=== PATIENT | male | born 1950 | race Caucasian/White ===

== ENCOUNTER 2018-05-28 08:48 | Inpatient (IN) | payer MEDICARE, OTHER ==
[~2018-05-28] VITALS: Ht 165.1 cm; Wt 66.9 kg
[2018-05-28] MEDS ORDERED: SOD CHLORIDE 0.9% 1,000 ML IV STA (09:13)
[2018-05-28] MEDS ORDERED: morphine 4 MG/ML VIAL IV STA (09:13)
[2018-05-28] MEDS ORDERED: ONDANSETRON 4 MG INJ IV STA ×2 (09:13→12:14)
[2018-05-28] MEDS ORDERED: IOHEXOL 300MG/ML 150 ML BTL ONE (10:16)
[2018-05-28] MEDS ORDERED: SOD CHLORIDE 0.9% 100 ML ONE (10:16)
[2018-05-28] MEDS ORDERED: HYDROmorphONE 1 MG/ML SYG IV STA (12:14)
[2018-05-28] MEDS ORDERED: TAMS0.4C2 PO (12:42)
--- NOTE | 2018-05-28 13:27 | ERD ---
ER Documentation Chief Complaint Chief Complaint ABD PAIN WITH NAUSEA X 1 MONTH HPI This is a 67-year-old male with a known history of metastatic prostate cancer receiving treatment by his vocal artist oncologist named Dr. Huerta at [facility]. The patient indicates his last dose of chemotherapy was 2 months prior to arrival. He was diagnosed with cancer 2 years ago. The patient indicates for the past 48 hours he has been experiencing left lower quadrant abdominal pain. He also indicates for the past several weeks he has been having loose watery stools. Indicates that he is having watery stools roughly every 30 minutes. He has not recently been on any antibiotics. He said no fevers or shaking or chills. He denies any shortness of breath at rest or exertion. He has not taken any analgesic medication. He feels nauseous but has not experience any emesis. He states the pain in the left lower quadrant is a dull achy sensation. There is no alleviating or exacerbating factors. The pain is persistent. ROS All systems reviewed and are negative except as per history of present illness. Medications Home Meds Reported Medications Tamsulosin Hcl* (Tamsulosin Hcl*) 0.4 Mg Cap.er.24h, 0.4 MG PO HS, CAP 05/28/18 Allergies Allergies: Coded Allergies: tetracycline (Unverified Allergy, Unknown, 05/28/18) PMhx/Soc Medical and Surgical Hx: pt denies Medical Hx, pt denies Surgical Hx Hx Miscellaneous Medical Probl: Yes (prostate cancer) Hx Alcohol Use: No Hx Substance Use: No Hx Tobacco Use: No Smoking Status: Never smoker Physical Exam Vitals Vital Signs Date Temp Pulse Resp B/P (MAP) Pulse Ox O2 O2 Flow FiO2 Time Delivery Rate 05/28/18 88 20 122/76 95 Room Air 12:54 (91) 05/28/18 99.1 90 18 109/64 96 08:51 (79) Physical Exam Constitutional:Well-developed. Well-nourished. HEENT:Normocephalic. Atraumatic.Pupils were equal round reactive to light. Dry mucous membranes.No tonsillar exudates. Neck: No nuchal rigidity. No lymphadenopathy. No posterior cervical spine tenderness or step-offs. Respiratory: Not using accessory muscles of respiration.Lungs were clear to auscultation bilaterally. No rhonchi. No rales. No wheezing. Cardiovascular: Regular rate regular rhythm.No murmurs. No rubs were appreciated.S1, S2 normal. Distal pulses are palpable 2+ bilaterally. GI: Abdomen was soft. Mild tenderness in left lower quadrant. Non Distended. No pulsatile abdominal masses or bruits. No rebound. No guarding. Bowel sounds were present and normal. Muscle skeletal: Full range of motion of both the upper and lower extremities bilaterally.Normal muscle tone.No assymetrical calf tenderness or swelling. Skin: No petechia, no purpura. No lesions on the palms or the soles of the feet. No maculopapular rash. NEURO: Patient was alert, awake, orientated x3.No facial droop. Gait observed and normal with no ataxia.Speech had regular rate and rhythm. No focal neurological deficits. Result Diagram: 05/28/1891205/28/1813 Results 24 hrs Laboratory Tests Test 05/28/18 09:13 05/28/18 09:15 05/28/18 09:35 White Blood Count 9.9 10^3/ul Red Blood Count 3.98 10^6/ul Hemoglobin 11.8 g/dl Hematocrit 35.5 % Mean Corpuscular Volume 89.2 fl Mean Corpuscular Hemoglobin 29.6 pg Mean Corpuscular 33.2 g/dl Hemoglobin Concent Red Cell Distribution Width 13.1 % Platelet Count 356 10^3/UL Mean Platelet Volume 8.7 fl Immature Granulocytes % 0.400 % Neutrophils % 80.8 % Lymphocytes % 8.7 % Monocytes % 8.2 % Eosinophils % 1.5 % Basophils % 0.4 % Nucleated Red Blood Cells % 0.0 /100WBC Immature Granulocytes # 0.040 10^3/ul Neutrophils # 8.0 10^3/ul Lymphocytes # 0.9 10^3/ul Monocytes # 0.8 10^3/ul Eosinophils # 0.2 10^3/ul Basophils # 0.0 10^3/ul Nucleated Red Blood Cells # 0.0 10^3/ul Sodium Level 135 mmol/L Potassium Level 3.5 mmol/L Chloride Level 97 mmol/L Carbon Dioxide Level 27 mmol/L Anion Gap 11 Blood Urea Nitrogen 9 mg/dl Creatinine 0.80 mg/dl Est Glomerular Filtrat > 60 mL/min Rate mL/min Glucose Level 125 mg/dl Calcium Level 9.8 mg/dl Total Bilirubin 0.3 mg/dl Direct Bilirubin 0.00 mg/dl Indirect Bilirubin 0.3 mg/dl Aspartate Amino 51 IU/L Transf (AST/SGOT) Alanine 18 IU/L Aminotransferase (ALT/SGPT) Alkaline Phosphatase 144 IU/L Troponin I < 0.012 ng/ml Total Protein 7.4 g/dl Albumin 4.1 g/dl Globulin 3.30 g/dl Albumin/Globulin Ratio 1.24 Amylase Level 67 U/L Lipase 91 U/L Prostate Specific Antigen Pending Prothrombin Time 14.2 Sec Prothrombin Time Ratio 1.1 INR International 1.09 Normalized Ratio Activated Partial Thromboplast 39.4 Sec Time Urine Color STRAW Urine Clarity CLEAR Urine pH 6.0 Urine Specific [place] 1.005 Urine Ketones NEGATIVE mg/dL Urine Nitrite NEGATIVE mg/dL Urine Bilirubin NEGATIVE mg/dL Urine Urobilinogen NEGATIVE mg/dL Urine Leukocyte Esterase NEGATIVE Jamie/ul Urine Microscopic RBC 4 /HPF Urine Microscopic WBC 0 /HPF Urine Hemoglobin 2+ mg/dL Urine Glucose NEGATIVE mg/dL Urine Total Protein NEGATIVE mg/dl Current Medications Medications Dose Sig/Anne Start Time Status Last (Trade) Ordered Route PRN Stop Time Admin Dose Reason Admin Sodium 1,000 ml @ Q1H STAT 05/28/18 DC 05/28/18 Chloride 1,000 mls/hr IV 09:13 09:27 05/28/18 10:12 Morphine 4 mg ONCE STAT 05/28/18 DC 05/28/18 Sulfate IV 09:13 09:27 (morphine) 05/28/18 09:16 Ondansetron 4 mg ONCE STAT 05/28/18 DC 05/28/18 HCl (Zofran IV 09:13 09:27 Inj) 05/28/18 09:16 Iohexol 150 ml STK-MED 05/28/18 DC (Omnipaque ONCE .ROUTE 10:16 300mg/ ml) 05/28/18 10:17 Sodium 100 ml @ ud STK-MED 05/28/18 DC Chloride ONCE .ROUTE 10:16 05/28/18 10:17 1 mg ONCE STAT 05/28/18 DC 05/28/18 Hydromorphone IV 12:14 12:25 HCl 05/28/18 12:15 (Dilaudid) Ondansetron 4 mg ONCE STAT 05/28/18 DC 3/10/19 HCl (Zofran IV 12:14 12:24 Inj) 05/28/18 12:15 Procedures/MDM This patient presented to the emergency department with abdominal pain and was seen and evaluated by myself. My differential diagnosis included but was not limited to abdominal aortic aneurysm, appendicitis, pancreatitis, perforated peptic ulcer, perforated viscus, Boerhaaves syndrome or visceral pain such as diverticulitis, DKA, esophagitis, hepatitis or bowel obstruction. The patient was placed on a environmental monitoring technician, continuous pulse oximetry, and IV access was established by nursing staff. The patient was given intravenous morphine and Zofran but this did not improve his pain. Therefore he was given a further dose of Dilaudid. I obtained a CT scan of the abdomen due to the severity of his pain and his past medical history. This was reviewed by the radiologist and indicated the follo win. Extensive lymphadenopathy is identified, compatible with neoplasm, possibly metastatic disease or lymphoma. Dominant left pelvic sidewall lymph node demonstrates areas of hypoenhancement and adjacent inflammation/edema, possibly indicating necrosis. 2. Extensive sclerotic osseous metastases. 3. Mildly enlarged prostate, possibly indicating underlying primary prostate malignancy. 4. Left ureteral stent is in place. There is moderate left hydroureteronephrosis. 5. Urinary bladder is moderately distended, concerning for urinary retention / bladder outflow obstruction. The patient was able to urinate without any difficulty. Patient also been experiencing diarrhea but had no risk factors for Clostridium difficile. The patient had no severe electrolyte abnormalities. A C. difficile culture will be obtained. My clinical suspicion was low for necrosis of the bowel as the patient had very mild pain. There is no leukocytosis. However I did feel the patient required admission for serial repeat abdominal examinations. There is no peritoneal signs during my physical exam. Observation Note: Time: 4 hours Family Hx: No Hypertension Evaluation: Multiple exams showed minimal improvement of his symptoms and therefore I did feel the patient required admission as stated above for serial abdominal examinations. Again the patient had no peritoneal signs. The patient will be admitted to the hospitalist. I did feel the patient was stable to go to the medical surgical floor Departure Diagnosis: Primary Impression: Prostate cancer metastatic to multiple sites Additional Impression: Diarrhea Diarrhea type: unspecified type Qualified Codes: R19.7 - Diarrhea, unspecified Condition: Serious BERT SIERRA MD May 28, 2018 13:27
[2018-05-28] MEDS: SOD CHLORIDE 0.9% 1,000 ML IV SCH (14:50)
[2018-05-28] MEDS ORDERED: NACL 0.9% 3 ML SYG IV SCH (15:00)
[2018-05-28] MEDS ORDERED: IBUPROFEN 600 MG TAB PO PRN (15:00)
--- NOTE | 2018-05-28 15:20 | HP ---
Date/Time of Note Date/Time of Note DATE: 05/28/18 TIME: 14:55 Assessment/Plan VTE Prophylaxis Pharmacological prophylaxis: NA/contraindicated Pharm contraindication: low risk/ambulating Lines/Catheters IV Catheter Type (from Nrsg): Saline Lock Assessment/Plan Assessment/Plan 67 yo man with metastatic prostate cancer presents with cancer-related pain #Diarrhea - 3 days very frequent diarrhea - Moderate risk of C diff in this cancer patient on chemotherapy, even though normal WBCs - Will check C diff. #Cancer-related pain - Patient has not been taking home analgesics. - Has bone mets causing pain with ambulation. These respond well to NSAIDs, will start ibuprofen prn - Also continue Bryan - For burning epigastric pain, will increase to PPI BID - May benefit from appetite stimulant like Marinol. However patient currently appears well nourished, will defer this decision to his oncologist. - PT eval #Lymphadenopathy - CT shows abdominal and pelvic lymphadenopathy with necrosis, likely contributing to pain. - Pain control as above. - Oncology outpatient followup. Dispo: If C diff negative, likely discharge. Result Diagram: 05/28/1891205/28/18912 HPI/ROS Admit Date/Time Admit Date/Time May 28, 2018 Hx of Present Illness Mr. Hawkins is a pleasant 67 yo man with metastatic prostate cancer who presents with abdominal pain. He follows Dr. Deanna Casillas at [facility] for oncology. Finished chemotherapy 2 months ago. He reports that since then, he has lost his sense of taste and has very poor appetite. Also reports chronic diarrhea and diffuse bone pain. The last 3-4 days he has been bedridden more than 50% of the day due to bone pain. He reports normally can do all ADLs. He also reports diffuse burning abdominal pain, "like my stomach is hungry but I feel nauseated". Also, reports three days of diarrhea more frequent than usual every 30 minutes. He has not vomited. He has been prescribed norco but he rarely takes it, reports it doesn't improve abdominal discomfort. Takes omeprazole daily. Discussed goals of care and code status. He is amenable to changing code status in the future but currently wants to remain full code. Understands the chronic progressive nature of his disease. In the ED he was afebrile, pulse 90, BP 109/64, sat 96% RA. Labs unremarkable. UA negative, lipase 91. CT demonstrates diffuse lymphadenopathy with a large L pelvic sidewall lymph node which appears necrotic. ROS Denies fever, chills, headache, vision changes, dysphagia, sore throat, dyspnea, cough, chest pain/pressure/palpitations, constipation, vomiting, dysuria, hematuria, melena, hematochezia. PMH/Family/Social Past Medical History Prostate cancer metastatic on chemotherapy Medications Current Medications Sodium Chloride 1,000 ml @ 75 mls/hr [id number] IV ; Start 05/28/18 at 14:50; Status UNV IV Flush (NS 3 ml) 3 ml PER PROTOCOL IV ; Start 05/28/18 at 15:00; Status UNV Ondansetron HCl (Zofran Inj) 4 mg Q6H PRN IV NAUSEA/VOMITING; Start 05/28/18 at 15:00; Status UNV Acetaminophen/ Hydrocodone Bitart (Bryan (5/325)) 1 tab Q6H PRN PO .MOD PAIN 4- 6; Start 05/28/18 at 15:00; Status UNV Pantoprazole (Protonix Iv) 40 mg BID IV ; Start 05/28/18 at 21:00; Status UNV Enoxaparin Sodium (Lovenox) 40 mg DAILY SC ; Start 05/29/18 at 09:00; Status UNV Coded Allergies: tetracycline (Unverified Allergy, Unknown, 05/28/18) Past Surgical History Bladder stone removal L ureteral stent placement. Social History Alcohol Use: none Smoking Status: Never smoker Drug Use: none Exam/Review of Systems Vital Signs Vitals Vital Signs Date Temp Pulse Resp B/P (MAP) Pulse Ox O2 O2 Flow FiO2 Time Delivery Rate 05/28/18 89 18 102/62 98 Room Air 14:12 (75) 05/28/18 99.1 08:51 Exam Exam Gen: Well appearing overweight man in no acute distress. Eyes: PERRL, no icterus HEENT: Moist mucous membranes, adentulous; clear oropharynx Neck: No lymphadenopathy, no JVD Card: Regular rate and rhythm, no murmurs Pulm: Clear to auscultation bilaterally Abd: Soft, nontender; mildly distended. Nontympanic, no hepatosplenomegaly. Ext: No cyanosis/clubbing/edema Skin: warm, dry, well perfused. LEORA DOMÍNGUEZ MD May 28, 2018 15:08
[2018-05-28 20:00] VITALS: Ht 165.1 cm; Wt 66.9 kg
[2018-05-28] MEDS: PANTOPRAZOLE 40 MG INJ IV SCH (21:14)
[2018-05-28] MEDS: HYDROCODONE/APAP (5/325) TAB PO PRN (23:02)
[2018-05-29 02:10] VITALS: BP 119/66; PULSE 91; RESP 18
[2018-05-29] MEDS: SOD CHLORIDE 0.9% 1,000 ML IV SCH ×2 (05:10→17:35)
[2018-05-29] MEDS ORDERED: morphine 2 MG INJ IV STA (05:37)
[2018-05-29 07:15] VITALS: BP 119/73; PULSE 107; RESP 16
[2018-05-29] MEDS: PANTOPRAZOLE 40 MG INJ IV SCH ×2 (09:08→21:20)
[2018-05-29] MEDS: HYDROCODONE/APAP (5/325) TAB PO PRN (09:09)
[2018-05-29] MEDS: ENOXAPARIN 40 MG/0.4 ML SYG SC SCH (09:10)
[2018-05-29 14:43] VITALS: BP 124/69; PULSE 102; RESP 16
--- NOTE | 2018-05-29 16:11 | PN ---
Date/Time of Note Date/Time of Note DATE: 05/29/18 TIME: 16:08 Assessment/Plan VTE Prophylaxis Risk score (from Ns)>0 risk: 5 SCD applied (from Ns): No SCD contraindicated: other Pharmacological prophylaxis: LMWH Lines/Catheters [facility] Saline Lock Urinary Cath still in place: No Assessment/Plan Hospital Course S: Patient stool studies collected, results pending. Still having some pain symptoms but overall less diarrhea symptoms. O: VS-see below Physical exam: Gen: Well appearing overweight man in no acute distress. Eyes: PERRL, no icterus HEENT: Moist mucous membranes, adentulous; clear oropharynx Neck: No lymphadenopathy, no JVD Card: Regular rate and rhythm, no murmurs Pulm: Clear to auscultation bilaterally Abd: Soft, nontender; mildly distended. Nontympanic, no hepatosplenomegaly. Ext: No lower extremity edema bilaterally Assessment/Plan: 67 yo man with metastatic prostate cancer presents with cancer- related pain #Diarrhea-none noted since admission, apparently patient was having 3 days of ve ry frequent diarrhea prior to admission- Moderate risk of C diff in this cancer patient on chemotherapy, even though normal WBCs -Continue IV fluids, follow-up results of C diff test, pending #Cancer-related pain- Patient has not been taking home analgesics.- Has bone mets causing pain with ambulation. -We will start patient on MS Contin twice daily, also continue Umpire as needed - For burning epigastric pain, have increased to PPI BID - May benefit from appetite stimulant like Marinol. However patient currently appears well nourished, will defer this decision to his oncologist. -Follow-up recommendations from PT inderjit #Lymphadenopathy- CT shows abdominal and pelvic lymphadenopathy with necrosis, likely contributing to pain. -Continue pain control as above. - Oncology outpatient followup. Dispo: If C diff negative, likely discharge. Result Diagram: 05/29/18 0439 05/29/18 0509 Results 24hrs Laboratory Tests Test 05/29/18 04:35 05/29/18 05:09 White Blood Count 14.0 #H Red Blood Count 4.02 L Hemoglobin 11.9 L Hematocrit 36.6 L Mean Corpuscular Volume 91.0 Mean Corpuscular Hemoglobin 29.6 Mean Corpuscular Hemoglobin Concent 32.5 Red Cell Distribution Width 13.5 Platelet Count 371 Mean Platelet Volume 9.4 Immature Granulocytes % 0.600 H Neutrophils % 80.6 H Lymphocytes % 8.2 L Monocytes % 10.1 Eosinophils % 0.1 Basophils % 0.4 Nucleated Red Blood Cells % 0.0 Immature Granulocytes # 0.080 H Neutrophils # 11.3 H Lymphocytes # 1.2 Monocytes # 1.4 H Eosinophils # 0.0 Basophils # 0.1 Nucleated Red Blood Cells # 0.0 Hemoglobin A1c 5.4 Sodium Level 139 Potassium Level 4.0 Chloride Level 100 Carbon Dioxide Level 24 Anion Gap 15 H Blood Urea Nitrogen 9 Creatinine 0.91 Est Glomerular Filtrat Rate mL/min > 60 Glucose Level 118 Calcium Level 9.6 Phosphorus Level 3.6 Magnesium Level 1.9 Total Bilirubin 0.6 Direct Bilirubin 0.00 Indirect Bilirubin 0.6 Aspartate Amino Transf (AST/SGOT) 53 H Alanine Aminotransferase (ALT/SGPT) 10 L Alkaline Phosphatase 122 H Total Protein 7.1 Albumin 4.0 Globulin 3.10 Albumin/Globulin Ratio 1.29 Triglycerides Level 62 Cholesterol Level 182 LDL Cholesterol, Calculated 133 HDL Cholesterol 37 Cholesterol/HDL Ratio 4.9 Thyroid Stimulating Hormone (TSH) 1.470 Exam/Review of Systems Exam Vitals Vital Signs Date Temp Pulse Resp B/P (MAP) Pulse Ox O2 O2 Flow FiO2 Time Delivery Rate 05/29/18 98.4 102 16 124/69 92 Room Air 14:43 (87) Intake and Output 05/28/18 05/28/18 05/29/18 1515:00 23:00 07:00 IntakeIntake Total 1575 ml BalanceBalance 1575 ml Results Results 24hrs Laboratory Tests Test 05/29/18 04:35 05/29/18 05:09 White Blood Count 14.0 #H Red Blood Count 4.02 L Hemoglobin 11.9 L Hematocrit 36.6 L Mean Corpuscular Volume 91.0 Mean Corpuscular Hemoglobin 29.6 Mean Corpuscular Hemoglobin Concent 32.5 Red Cell Distribution Width 13.5 Platelet Count 371 Mean Platelet Volume 9.4 Immature Granulocytes % 0.600 H Neutrophils % 80.6 H Lymphocytes % 8.2 L Monocytes % 10.1 Eosinophils % 0.1 Basophils % 0.4 Nucleated Red Blood Cells % 0.0 Immature Granulocytes # 0.080 H Neutrophils # 11.3 H Lymphocytes # 1.2 Monocytes # 1.4 H Eosinophils # 0.0 Basophils # 0.1 Nucleated Red Blood Cells # 0.0 Hemoglobin A1c 5.4 Sodium Level 139 Potassium Level 4.0 Chloride Level 100 Carbon Dioxide Level 24 Anion Gap 15 H Blood Urea Nitrogen 9 Creatinine 0.91 Est Glomerular Filtrat Rate mL/min > 60 Glucose Level 118 Calcium Level 9.6 Phosphorus Level 3.6 Magnesium Level 1.9 Total Bilirubin 0.6 Direct Bilirubin 0.00 Indirect Bilirubin 0.6 Aspartate Amino Transf (AST/SGOT) 53 H Alanine Aminotransferase (ALT/SGPT) 10 L Alkaline Phosphatase 122 H Total Protein 7.1 Albumin 4.0 Globulin 3.10 Albumin/Globulin Ratio 1.29 Triglycerides Level 62 Cholesterol Level 182 LDL Cholesterol, Calculated 133 HDL Cholesterol 37 Cholesterol/HDL Ratio 4.9 Thyroid Stimulating Hormone (TSH) 1.470 Medications Medication Current Medications Sodium Chloride 1,000 ml @ 75 mls/hr [id number] IV Last administered on 05/29/18 05:10; Admin Dose 75 MLS/HR; Start 05/28/18 at 14:50 IV Flush (NS 3 ml) 3 ml PER PROTOCOL IV ; Start 05/28/18 at 15:00 Ondansetron HCl (Zofran Inj) 4 mg Q6H PRN IV NAUSEA/VOMITING; Start 05/28/18 at 15:00 Acetaminophen/ Hydrocodone Bitart (Umpire (5/325)) 1 tab Q6H PRN PO .MOD PAIN 4- 6 Last administered on 05/29/18 09:09; Admin Dose 1 TAB; Start 05/28/18 at 15:00 Pantoprazole (Protonix Iv) 40 mg BID IV Last administered on 05/29/18at 09:08; Admin Dose 40 MG; Start 05/28/18 at 21:00 Enoxaparin Sodium (Lovenox) 40 mg DAILY SC Last administered on 05/29/18 09:10; Admin Dose 40 MG; Start 05/29/18 at 09:00 Ibuprofen (Motrin) 600 mg Q6H PRN PO bone pain; Start 05/28/18 at 15:00 CITLALY CALERO May 29, 2018 16:11
[2018-05-29] MEDS: morphine (ER) 15 MG TAB PO SCH (16:41)
[2018-05-29] MEDS: ONDANSETRON 4 MG INJ IV PRN (17:35)
[2018-05-29 20:32] VITALS: BP 111/69; PULSE 105; RESP 16
[2018-05-30] MEDS: morphine (ER) 15 MG TAB PO SCH ×2 (01:11→09:05)
[2018-05-30 02:08] VITALS: BP 106/67; PULSE 100; RESP 16
[2018-05-30] MEDS: SOD CHLORIDE 0.9% 1,000 ML IV SCH ×2 (05:45→19:41)
[2018-05-30 08:18] VITALS: BP 93/49; PULSE 101; RESP 18
[2018-05-30] MEDS: PANTOPRAZOLE 40 MG INJ IV SCH ×2 (09:04→20:56)
[2018-05-30] MEDS: ENOXAPARIN 40 MG/0.4 ML SYG SC SCH (09:06)
[2018-05-30] MEDS: HYDROCODONE/APAP (5/325) TAB PO PRN (10:16)
[2018-05-30] MEDS: ONDANSETRON 4 MG INJ IV PRN (13:24)
[2018-05-30 14:30] VITALS: BP 99/59; PULSE 91; RESP 20
--- NOTE | 2018-05-30 14:52 | PN ---
Date/Time of Note Date/Time of Note DATE: 05/30/18 TIME: 14:49 Assessment/Plan VTE Prophylaxis Risk score (from Nsg)>0 risk: 3 SCD applied (from Nsg): No SCD contraindicated: other Pharmacological prophylaxis: LMWH Lines/Catheters IV Catheter Type (from Nrsg): Saline Lock Urinary Cath still in place: No Assessment/Plan Hospital Course S: Patient not having any more diarrhea, pain symptoms slightly improved but still overall present since yesterday despite being started on low-dose MS Contin. O: VS-see below Physical exam: Gen: Well appearing overweight man in no acute distress. Eyes: PERRL, no icterus HEENT: Moist mucous membranes, adentulous; clear oropharynx Neck: No lymphadenopathy, no JVD Card: Regular rate and rhythm, no murmurs Pulm: Clear to auscultation bilaterally Abd: Soft, nontender; mildly distended. Nontympanic, no hepatosplenomegaly. Ext: No lower extremity edema bilaterally Assessment/Plan: 67 yo man with metastatic prostate cancer presents with cancer- related pain #Diarrhea-none noted since admission, apparently patient was having 3 days of very frequent diarrhea prior to admission- Moderate risk of C diff in this cancer patient on chemotherapy, even though normal WBCs -Since stools are more formed, C. difficile test has been counseled, continue to monitor for now #Cancer-related pain-history of prostate cancer metastasis. CT abdomen pelvis results noted per; patient has not been taking home analgesics.- Has bone mets causing pain with ambulation. -We will increase to 30 mg MS Contin twice daily, also continue [place] as needed -We will add baclofen 3 times daily as well - For burning epigastric pain, continue PPI BID - May benefit from appetite stimulant like Marinol. However patient currently appears well nourished, will defer this decision to his oncologist. -Follow-up recommendations from PT inderjit -Patient has been treated at [facility] under the care of Dr. Suma Renteria hematology oncology fellow for the last 2 years. Stopped chemotherapy 2 months ago at their instructions. Will attempt to try and reach out to this doctor and attempt for a transfer there since the patient is well- known at their facility for continuity of care #Lymphadenopathy- CT shows abdominal and pelvic lymphadenopathy with necrosis, likely contributing to pain. -Continue pain control as above. - Oncology outpatient followup if cannot be transferred. Dispo: If C diff negative, likely discharge. Result Diagram: 05/29/18 0435 05/29/18 0500 Exam/Review of Systems Exam Vitals Vital Signs Date Temp Pulse Resp B/P (MAP) Pulse Ox O2 O2 Flow FiO2 Time Delivery Rate 05/30/18 100.6 101 18 93/49 (64) 92 Room Air 08:18 Intake and Output 05/29/18 05/29/18 05/30/18 1515:00 23:00 07:00 IntakeIntake Total 1215 ml 910 ml OutputOutput Total 200 ml BalanceBalance 1215 ml 710 ml Medications Medication Current Medications Sodium Chloride 1,000 ml @ 75 mls/hr [id number] IV Last administered on 05/30/18at 05:45; Admin Dose 75 MLS/HR; Start 05/28/18 at 14:50 IV Flush (NS 3 ml) 3 ml PER PROTOCOL IV ; Start 05/28/18 at 15:00 Ondansetron HCl (Zofran Inj) 4 mg Q6H PRN IV NAUSEA/VOMITING Last administered on 05/30/18at 13:24; Admin Dose 4 MG; Start 05/28/18 at 15:00 Acetaminophen/ Hydrocodone Bitart ([place] (5/325)) 1 tab Q6H PRN PO .MOD PAIN 4- 6 Last administered on 05/30/18at 10:16; Admin Dose 1 TAB; Start 05/28/18 at 15:00 Pantoprazole (Protonix Iv) 40 mg BID IV Last administered on 05/30/18at 09:04; Admin Dose 40 MG; Start 05/28/18 at 21:00 Enoxaparin Sodium (Lovenox) 40 mg DAILY SC Last administered on 05/30/18at 09:0 6; Admin Dose 40 MG; Start 05/29/18 at 09:00 Ibuprofen (Motrin) 600 mg Q6H PRN PO bone pain; Start 05/28/18 at 15:00 Morphine Sulfate (Ms Contin (Er)) 30 mg BID PO ; Start 05/30/18 at 21:00 Morphine Sulfate (Ms Contin (Er)) 15 mg ONCE ONCE PO ; Start 05/30/18 at 15:00; Stop 05/30/18 at 15:01 Baclofen (Lioresal) 10 mg TID PO ; Start 05/30/18 at 15:00 CITLALY CALERO May 30, 2018 14:52
[2018-05-30] MEDS ORDERED: morphine (ER) 15 MG TAB PO ONE (15:00)
[2018-05-30] MEDS: BACLOFEN 10 MG TAB PO SCH ×2 (15:53→20:57)
[2018-05-30 20:00] VITALS: BP 111/69; PULSE 104; RESP 19
[2018-05-30] MEDS: morphine (ER) 30 MG TAB PO SCH (20:57)
[2018-05-31 02:00] VITALS: BP 117/55; PULSE 69; RESP 18
[2018-05-31 08:00] VITALS: BP 105/67; PULSE 100; RESP 18
[2018-05-31] MEDS: morphine (ER) 30 MG TAB PO SCH ×3 (08:25→21:04)
[2018-05-31] MEDS: PANTOPRAZOLE 40 MG INJ IV SCH (08:25)
[2018-05-31] MEDS: BACLOFEN 10 MG TAB PO SCH ×3 (08:25→21:04)
[2018-05-31] MEDS: ENOXAPARIN 40 MG/0.4 ML SYG SC SCH (08:26)
[2018-05-31] MEDS: SOD CHLORIDE 0.9% 1,000 ML IV SCH (10:04)
[2018-05-31 14:00] VITALS: BP 118/72; RESP 20
--- NOTE | 2018-05-31 15:20 | PN ---
Date/Time of Note Date/Time of Note DATE: 05/31/18 TIME: 15:15 Assessment/Plan VTE Prophylaxis Risk score (from Nsg)>0 risk: 4 SCD applied (from Nsg): No SCD contraindicated: other Pharmacological prophylaxis: LMWH Lines/Catheters IV Catheter Type (from Nrsg): Saline Lock Urinary Cath still in place: No Assessment/Plan Hospital Course S: Patient still with pain symptoms despite higher dose of MS Contin and adding of muscle relaxant yesterday. Case management still waiting on potential transfer to [facility]. O: VS-see below Physical exam: Gen: Well appearing overweight man in no acute distress. Eyes: PERRL, no icterus HEENT: Moist mucous membranes, adentulous; clear oropharynx Neck: No lymphadenopathy, no JVD Card: Regular rate and rhythm, no murmurs Pulm: Clear to auscultation bilaterally Abd: Soft, nontender; mildly distended. Nontympanic, no hepatosplenomegaly. Ext: No lower extremity edema bilaterally Assessment/Plan: 67 yo man with metastatic prostate cancer presents with cancer- related pain #Diarrhea-none noted since admission, apparently patient was having 3 days of very frequent diarrhea prior to admission- Moderate risk of C diff in this cancer patient on chemotherapy, even though normal WBCs -Since stools are more formed, C. difficile test has been counseled, continue to monitor for now #Cancer-related pain-history of prostate cancer metastasis. CT abdomen pelvis results noted including findings of extensive osseous metastasis; per patient, he was treated over the last 2 years up until 2 months ago at [facility] including chemotherapy treatment at that time: Patient has not been taking home analgesics-hence he has bone mets causing pain with ambulation. -We will add Dilaudid 1 mg IV every 3 hours as needed to the 30 mg MS Contin twice daily, also continue Nunez as needed -Continue baclofen 3 times daily as well - For burning epigastric pain, continue PPI BID - May benefit from appetite stimulant like Marinol. However patient currently appears well nourished, will defer this decision to his oncologist. -Follow-up recommendations from PT inderjit -Again, previously the patient had been treated at [facility] under the care of Dr. Suma Renteria hematology oncology fellow for the last 2 years. Stopped chemotherapy 2 months ago at their instructions. Have attempted to try and reach out to this doctor and attempt for a transfer there since the patient is well-known at their facility for continuity of care-Case management is presently working on this. #Lymphadenopathy- CT shows abdominal and pelvic lymphadenopathy with necrosis, likely contributing to pain. -Continue pain control as above. - Oncology outpatient followup if cannot be transferred. Result Diagram: 05/30/18 1632 05/30/18 1631 Results 24hrs Laboratory Tests Test 05/30/18 16:31 05/30/18 16:32 05/30/18 20:50 Sodium Level 134 L Potassium Level 3.5 Chloride Level 99 Carbon Dioxide Level 24 Anion Gap 11 Blood Urea Nitrogen 8 Creatinine 0.85 Est Glomerular Filtrat Rate mL/min > 60 Glucose Level 114 Calcium Level 9.1 White Blood Count 13.7 H Red Blood Count 3.28 L Hemoglobin 9.6 L Hematocrit 29.6 L Mean Corpuscular Volume 90.2 Mean Corpuscular Hemoglobin 29.3 Mean Corpuscular Hemoglobin Concent 32.4 Red Cell Distribution Width 13.7 Platelet Count 306 Mean Platelet Volume 9.8 Immature Granulocytes % 0.500 H Neutrophils % 82.2 H Lymphocytes % 6.8 L Monocytes % 9.9 Eosinophils % 0.2 Basophils % 0.4 Nucleated Red Blood Cells % 0.0 Immature Granulocytes # 0.070 H Neutrophils # 11.3 H Lymphocytes # 0.9 Monocytes # 1.4 H Eosinophils # 0.0 Basophils # 0.1 Nucleated Red Blood Cells # 0.0 Urine Color YELLOW Urine Clarity CLEAR Urine pH 5.0 Urine Specific [place] 1.012 Urine Ketones NEGATIVE Urine Nitrite NEGATIVE Urine Bilirubin NEGATIVE Urine Urobilinogen NEGATIVE Urine Leukocyte Esterase NEGATIVE Urine Microscopic RBC 9 H Urine Microscopic WBC 2 Urine Mucus FEW A Urine Hemoglobin 2+ H Urine Glucose NEGATIVE Urine Total Protein 1+ H Exam/Review of Systems Exam Vitals Vital Signs Date Temp Pulse Resp B/P (MAP) Pulse Ox O2 O2 Flow FiO2 Time Delivery Rate 05/31/18 98.8 20 118/72 96 14:00 (87) 05/31/18 100 08:00 05/30/18 Room Air 14:30 Intake and Output 05/30/18 05/30/18 05/31/18 1515:00 23:00 07:00 IntakeIntake Total 780 ml 1000 ml 750 ml OutputOutput Total 300 ml 250 ml 400 ml BalanceBalance 480 ml 750 ml 350 ml Results Results 24hrs Laboratory Tests Test 05/30/18 16:31 05/30/18 16:32 05/30/18 20:50 Sodium Level 134 L Potassium Level 3.5 Chloride Level 99 Carbon Dioxide Level 24 Anion Gap 11 Blood Urea Nitrogen 8 Creatinine 0.85 Est Glomerular Filtrat Rate mL/min > 60 Glucose Level 114 Calcium Level 9.1 White Blood Count 13.7 H Red Blood Count 3.28 L Hemoglobin 9.6 L Hematocrit 29.6 L Mean Corpuscular Volume 90.2 Mean Corpuscular Hemoglobin 29.3 Mean Corpuscular Hemoglobin Concent 32.4 Red Cell Distribution Width 13.7 Platelet Count 306 Mean Platelet Volume 9.8 Immature Granulocytes % 0.500 H Neutrophils % 82.2 H Lymphocytes % 6.8 L Monocytes % 9.9 Eosinophils % 0.2 Basophils % 0.4 Nucleated Red Blood Cells % 0.0 Immature Granulocytes # 0.070 H Neutrophils # 11.3 H Lymphocytes # 0.9 Monocytes # 1.4 H Eosinophils # 0.0 Basophils # 0.1 Nucleated Red Blood Cells # 0.0 Urine Color YELLOW Urine Clarity CLEAR Urine pH 5.0 Urine Specific [place] 1.012 Urine Ketones NEGATIVE Urine Nitrite NEGATIVE Urine Bilirubin NEGATIVE Urine Urobilinogen NEGATIVE Urine Leukocyte Esterase NEGATIVE Urine Microscopic RBC 9 H Urine Microscopic WBC 2 Urine Mucus FEW A Urine Hemoglobin 2+ H Urine Glucose NEGATIVE Urine Total Protein 1+ H Medications Medication Current Medications Sodium Chloride 1,000 ml @ 75 mls/hr [id number] IV Last administered on 05/31/18at 10:04; Admin Dose 75 MLS/HR; Start 05/28/18 at 14:50 IV Flush (NS 3 ml) 3 ml PER PROTOCOL IV ; Start 05/28/18 at 15:00 Ondansetron HCl (Zofran Inj) 4 mg Q6H PRN IV NAUSEA/VOMITING Last administered on 05/30/18at 13:24; Admin Dose 4 MG; Start 05/28/18 at 15:00 Acetaminophen/ Hydrocodone Bitart ([place] (5/325)) 1 tab Q6H PRN PO .MOD PAIN 4- 6 Last administered on 05/30/18at 10:16; Admin Dose 1 TAB; Start 05/28/18 at 15:00 Enoxaparin Sodium (Lovenox) 40 mg DAILY SC Last administered on 05/31/18at 08:26; Admin Dose 40 MG; Start 05/29/18 at 09:00 Ibuprofen (Motrin) 600 mg Q6H PRN PO bone pain; Start 05/28/18 at 15:00 Morphine Sulfate (Ms Contin (Er)) 30 mg BID PO Last administered on 05/31/18at 08:25; Admin Dose 30 MG; Start 05/30/18 at 21:00 Baclofen (Lioresal) 10 mg TID PO Last administered on 05/31/18at 12:14; Admin Dose 10 MG; Start 05/30/18 at 15:00 Hydromorphone HCl (Dilaudid) 1 mg Q3H PRN IV SEVERE PAIN LEVEL 7-10; Start 05/31/18 at 15:30; Status UNV Pantoprazole (Protonix Tab) 40 mg BID@06,18 PO ; Start 05/31/18 at 18:00 CITLALY CALERO 13, 2019 15:20
[2018-05-31] MEDS ORDERED: HYDROmorphONE 1 MG/ML SYG IV PRN (15:30)
[2018-05-31] MEDS: PANTOPRAZOLE (EC) 40 MG TAB PO SCH (18:54)
[2018-05-31 20:00] VITALS: BP 115/68; PULSE 98; RESP 19
[2018-06-01 02:07] VITALS: BP 109/74; PULSE 88; RESP 18
[2018-06-01] MEDS: SOD CHLORIDE 0.9% 1,000 ML IV SCH ×3 (04:03→20:58)
[2018-06-01] MEDS: PANTOPRAZOLE (EC) 40 MG TAB PO SCH ×2 (05:59→17:01)
[2018-06-01 08:26] VITALS: BP 110/69; PULSE 89; RESP 17
[2018-06-01] MEDS ORDERED: HYDROmorphONE 2 MG TAB PO PRN (09:00)
[2018-06-01] MEDS ORDERED: METHYLNALTREXONE 12 MG/0.6 ML VIAL SC SCH (09:00)
[2018-06-01] MEDS: ENOXAPARIN 40 MG/0.4 ML SYG SC SCH (09:01)
--- NOTE | 2018-06-01 09:05 | CONS ---
Assessment/Plan Assessment/Plan Assessment/Plan (Daily) Metastatic prostate cancer Metastases to bones widespread osseous metastasis Chest x-ray shows evidence of nodular lesions in his lungs Sense of lymphadenopathy in the pelvic region Pain out of control Recent history of chemotherapy 2 months prior to this admission Recent history of diarrhea now resolved Just current dose of morphine not controlling his pain per patient will start him off and methadone 2 mg every 4 hours scheduled as it is the best pain medication for bony metastasis. Additionally will add on p.o. Dilaudid Relistor to her regimen to try and decrease the constipating effect of opioid pulses with steroids, short trial of Toradol 15 mg every 6 hours scheduled MR study of his lumbar sacral spine rule out metastases his lumbosacral spine indicating possible cessation with left lower extremity and left hip pain. I agree that if possible patient should be transferred to his primary care docs at [facility]. Consultation Date/Type/Reason Admit Date/Time May 28, 2018 Date/Time of Note DATE: 06/01/18 TIME: 08:59 Hx of Present Illness This is a very pleasant 67-year-old gentleman who has a history of metastatic prostate cancer last chemotherapy was done 2 months prior to his presentation since that time patient states he has had increasing discomfort, pain in his shoulder and left hip patient states no pain medications at home other than Tylenol. He also developed diarrhea beginning approximately 3 days prior to his presentation which has subsequently discontinued. There is no obvious history of major weight loss patient denies nausea vomiting chest pain shortness of breath cough frequency or burning when he urinates states he has not lost sensation or motor function in bilateral lower extremity since the pain began.. Denies pruritus mental cloudiness sweating fatigue or drowsiness is his pain as 7/10. Very with minimal movement. There is no history of oversedation negative mood changes he does not appear to be intoxicated or unkempt is not negotiating for increasing doses of pain control medications are decreasing intervals he states current medications including MS Contin and core not alleviating his pain but he makes very clear at rest he is comfortable with minimal movement his pain accelerates. I do not get the impression he is using his pain control medication response to situational stressors there is no history of alcohol illicit drugs hoarding or arrest by police is not a victim of abuse. Subjective hx not possible: other (In pain with minimal movement) Eyes: No no complaints, No pain, No discharge, No redness, No visual change, No other ENT: No no complaints, No bleeding, No pain, No congestion, No discharge, No dysphagia, No sore throat, No other Respiratory: No no complaints, No pain, No cough, No pleuritic pain, No shortness of breath, No sputum, No wheezing, No other Cardiovascular: No no complaints, No chest pain, No edema, No lightheadedness, No orthopenea, No palpitations, No paroxysmal nocturnal dyspnea, No other Gastrointestinal: No no complaints, No pain, No blood, No constipation, No decreased appetite, No diarrhea, No flatus, No nausea, No passing stool, No vomiting, No other Genitourinary: No no complaints, No bleeding, No dysuria, No discharge, No flank pain, No hematuria, No other Neurologic: No no complaints, No confusion, No dizziness, No focal-weakness, No headache, No syncope, No seizure, No other Past Medical History Medical History: cancer, other (Otherwise unremarkable) Home Meds Reported Medications Tamsulosin Hcl* (Tamsulosin Hcl*) 0.4 Mg Cap.er.24h, 0.4 MG PO HS, CAP 05/28/18 Medications Current Medications Sodium Chloride 1,000 ml @ 75 mls/hr [id number] IV Last administered on 06/01/18at 04:03; Admin Dose 75 MLS/HR; Start 05/28/18 at 14:50 IV Flush (NS 3 ml) 3 ml PER PROTOCOL IV ; Start 05/28/18 at 15:00 Ondansetron HCl (Zofran Inj) 4 mg Q6H PRN IV NAUSEA/VOMITING Last administered on 05/30/18at 13:24; Admin Dose 4 MG; Start 05/28/18 at 15:00 Acetaminophen/ Hydrocodone Bitart ([place] (5/325)) 1 tab Q6H PRN PO .MOD PAIN 4- 6 Last administered on 05/30/18at 10:16; Admin Dose 1 TAB; Start 05/28/18 at 15:00 Enoxaparin Sodium (Lovenox) 40 mg DAILY SC Last administered on 05/31/18at 08:26; Admin Dose 40 MG; Start 05/29/18 at 09:00 Ibuprofen (Motrin) 600 mg Q6H PRN PO bone pain; Start 05/28/18 at 15:00 Morphine Sulfate (Ms Contin (Er)) 30 mg BID PO Last administered on 05/31/18at 21:04; Admin Dose 30 MG; Start 05/30/18 at 21:00 Baclofen (Lioresal) 10 mg TID PO Last administered on 05/31/18at 21:04; Admin D ose 10 MG; Start 05/30/18 at 15:00 Hydromorphone HCl (Dilaudid) 1 mg Q3H PRN IV SEVERE PAIN LEVEL 7-10 Last administered on 05/31/18at 15:34; Admin Dose 1 MG; Start 05/31/18 at 15:30 Pantoprazole (Protonix Tab) 40 mg BID@06,18 PO Last administered on 06/01/18at 05:59; Admin Dose 40 MG; Start 05/31/18 at 18:00 Allergies: Coded Allergies: tetracycline (Unverified Allergy, Unknown, 05/28/18) Past Surgical History Past Surgical Hx: other (History of left ureteral stent placement x2, 3 of bladder reconstruction) Social History Alcohol Use: none Smoking Status: Never smoker Drug Use: none Exam/Review of Systems Exam Vitals Vital Signs Date Temp Pulse Resp B/P (MAP) Pulse Ox O2 O2 Flow FiO2 Time Delivery Rate 06/01/18 98.8 89 17 110/69 97 08:26 (83) 05/30/18 Room Air 14:30 Intake and Output 05/31/18 05/31/18 06/01/18 1515:00 23:00 07:00 IntakeIntake Total 600 ml 370 ml 1030 ml BalanceBalance 600 ml 370 ml 1030 ml Constitutional: alert, oriented, well developed, distress, frail Psych: anxiety Head: normocephalic, atraumatic; No lacerations, No hematomas, No other Eyes: nl conjunctiva, EOMI, nl lids, nl sclera, PERRL; No icteric, No fundi, disc, No other Neck: supple, non-tender; No jvd, No bruits, No masses, No thyromegaly, No nuchal rigidity, No other Respiratory: clear to auscultation, normal air movement Cardiovascular: No regular rate and rhythm, No nl pulses, No bruits, No diastolic murmur, No edema, No gallop, No irregular rhythm, No jugular venous distention (JVD), No murmurs/extra sounds, No rub, No systolic murmur, No S3, No S4, No other Gastrointestinal: No soft, No nl liver, spleen, No non-tender, No ascites, No bowel sounds, No distended, No firm, No hepatomegaly, No mass, No rebound or guarding, No splenomegaly, No surgical scars, No tender, No other Genitourinary - Male: No nl penis, No nl scrotum, No CVA tenderness, No discharge, No other Musculoskeletal: other (Negative for clonus) Extremities: normal pulses; No calf tenderness, No cyanosis, No clubbing, No edema, No pitting pedal edema, No palpable cord, No tenderness, No other Neurological: other (Negative for:) Results Result Diagram: 05/30/18 1632 05/30/18 1631 Medications Medication Current Medications Sodium Chloride 1,000 ml @ 75 mls/hr [id number] IV Last administered on 06/01/18 04:03; Admin Dose 75 MLS/HR; Start 05/28/18 at 14:50 IV Flush (NS 3 ml) 3 ml PER PROTOCOL IV ; Start 05/28/18 at 15:00 Ondansetron HCl (Zofran Inj) 4 mg Q6H PRN IV NAUSEA/VOMITING Last administered on 05/30/18 13:24; Admin Dose 4 MG; Start 05/28/18 at 15:00 Acetaminophen/ Hydrocodone Bitart ([place] (5/325)) 1 tab Q6H PRN PO .MOD PAIN 4- 6 Last administered on 05/30/18at 10:16; Admin Dose 1 TAB; Start 05/28/18 at 15:0 0 Enoxaparin Sodium (Lovenox) 40 mg DAILY SC Last administered on 05/31/18 08:26; Admin Dose 40 MG; Start 05/29/18 at 09:00 Ibuprofen (Motrin) 600 mg Q6H PRN PO bone pain; Start 05/28/18 at 15:00 Morphine Sulfate (Ms Contin (Er)) 30 mg BID PO Last administered on 05/31/18 21:04; Admin Dose 30 MG; Start 05/30/18 at 21:00 Baclofen (Lioresal) 10 mg TID PO Last administered on 05/31/18 21:04; Admin Dose 10 MG; Start 05/30/18 at 15:00 Hydromorphone HCl (Dilaudid) 1 mg Q3H PRN IV SEVERE PAIN LEVEL 7-10 Last administered on 05/31/18 15:34; Admin Dose 1 MG; Start 05/31/18 at 15:30 Pantoprazole (Protonix Tab) 40 mg BID@06,18 PO Last administered on 06/01/18 05:59; Admin Dose 40 MG; Start 05/31/18 at 18:00 CRISTIAN NICOLE Jun 01, 2018 09:05
[2018-06-01] MEDS: BACLOFEN 10 MG TAB PO SCH ×3 (09:20→20:57)
[2018-06-01] MEDS: METHYLPREDNISOLONE 125 MG INJ IV SCH ×3 (11:14→17:01)
[2018-06-01] MEDS: KETOROLAC 15 MG INJ IV SCH ×3 (11:15→20:57)
[2018-06-01] MEDS: METHADONE 5 MG TAB PO SCH ×4 (11:17→21:45)
[2018-06-01] MEDS ORDERED: ALBUTEROL/IPRATROPIUM (NEB) 3 ML AMP HHN PRN (13:30)
[2018-06-01 14:00] VITALS: BP 121/72; PULSE 86; RESP 18
--- NOTE | 2018-06-01 16:29 | PDOCDIS ---
Discharge Instructions CONDITION [id number] Patient Condition: [id number] Serious HOME CARE INSTRUCTIONS: [id number] Diet Instructions: [id number] Low Fat /Cholesterol CITLALY CALERO Jun 01, 2018 16:29
[2018-06-01] MEDS ORDERED: LOPERAMIDE 2 MG CAP PO ONE (16:30)
--- NOTE | 2018-06-01 16:31 | DS ---
Date/Time of Note Date/Time of Note DATE: 06/01/18 TIME: 16:30 Discharge Summary Admission/Discharge Info Admit Date/Time May 28, 2018 at 14:53 Discharge Date/Time Patient Condition: Serious Procedures CT abdomen pelvis with IV contrast May 28, 2018: IMPRESSION: 1. Extensive lymphadenopathy is identified, compatible with neoplasm, possibly metastatic disease or lymphoma. Dominant left pelvic sidewall lymph node demonstrates areas of hypoenhancement and adjacent inflammation/edema, possibly indicating necrosis. 2. Extensive sclerotic osseous metastases. 3. Mildly enlarged prostate, possibly indicating underlying primary prostate malignancy. 4. Left ureteral stent is in place. There is moderate left hydroureteronephrosis. 5. Urinary bladder is moderately distended, concerning for urinary retention / bladder outflow obstruction. Hx of Present Illness 67 yo man with metastatic prostate cancer who presents with abdominal pain. He follows Dr. Deanna Casillas at [facility] for oncology. Finished chemotherapy 2 months ago. He reports that since then, he has lost his sense of taste and has very poor appetite. Also reports chronic diarrhea and diffuse bone pain. The last 3-4 days he has been bedridden more than 50% of the day due to bone pain. He reports normally can do all ADLs. He also reports diffuse burning abdominal pain, "like my stomach is hungry but I feel nauseated". Also, reports three days of diarrhea more frequent than usual every 30 minutes. He has not vomited. He has been prescribed norco but he rarely takes it, reports it doesn't improve abdominal discomfort. Takes omeprazole daily. Discussed goals of care and code status. He is amenable to changing code status in the future but currently wants to remain full code. Understands the chronic progressive nature of his disease. In the ED he was afebrile, pulse 90, BP 109/64, sat 96% RA. Labs unremarkable. UA negative, lipase 91. CT demonstrates diffuse lymphadenopathy with a large L pelvic sidewall lymph node which appears necrotic. Hospital Course Assessment/Plan: 67 yo man with metastatic prostate cancer presents with cancer- related pain #Diarrhea-none noted since admission, apparently patient was having 3 days of very frequent diarrhea prior to admission- Moderate risk of C diff in this cancer patient on chemotherapy, even though normal WBCs -Since stools are more formed, C. difficile test has been counseled, continue to monitor for now #Cancer-related pain-history of prostate cancer metastasis. CT abdomen pelvis results noted including findings of extensive osseous metastasis; per patient, he was treated over the last 2 years up until 2 months ago at [facility] including chemotherapy treatment at that time: Patient has not been taking home analgesics-hence he has bone mets causing pain with ambulation. -We will add Dilaudid 1 mg IV every 3 hours as needed to the 30 mg MS Contin twice daily, also continue [place] as needed -Continue baclofen 3 times daily as well - For burning epigastric pain, continue PPI BID - May benefit from appetite stimulant like Marinol. However patient currently appears well nourished, will defer this decision to his oncologist. -Follow-up recommendations from PT inderjit -Again, previously the patient had been treated at [facility] under the care of Dr. Suma Renteria hematology oncology fellow for the last 2 years. Stopped chemotherapy 2 months ago at their instructions. Have attempted to try and reach out to this doctor and attempt for a transfer there since the patient is well-known at their facility for continuity of care-Case management is presently working on this. #Lymphadenopathy- CT shows abdominal and pelvic lymphadenopathy with necrosis, likely contributing to pain. -Continue pain control as above. - Oncology outpatient followup if cannot be transferred. Home Meds Reported Medications Tamsulosin Hcl* (Tamsulosin Hcl*) 0.4 Mg Cap.er.24h, 0.4 MG PO HS, CAP 05/28/18 Primary Care Provider Not On Staff Doctor Time spent on discharge: > 30 minutes Pending Labs Laboratory Tests Test 06/01/18 13:12 White Blood Count 10.0 10^3/ul (4.8-10.8) Red Blood Count 3.20 10^6/ul (4.70-6.10) Hemoglobin 9.3 g/dl (14.0-18.0) Hematocrit 28.7 % (42.0-52.0) Mean Corpuscular Volume 89.7 fl (82.0-101.0) Mean Corpuscular Hemoglobin 29.1 pg (29.0-33.0) Mean Corpuscular Hemoglobin Concent 32.4 g/dl (32.0-37.0) Red Cell Distribution Width 14.2 % (11.5-14.5) Platelet Count 340 10^3/UL (140-415) Mean Platelet Volume 9.2 fl (7.4-10.4) Immature Granulocytes % 0.400 % (0.001-0.429) Neutrophils % 91.2 % (39.0-77.0) Lymphocytes % 2.5 % (15.0-51.0) Monocytes % 5.4 % (0.0-11.0) Eosinophils % 0.2 % (0.0-7.0) Basophils % 0.3 % (0.0-2.0) Nucleated Red Blood Cells % 0.0 /100WBC (0.0-0.0) Immature Granulocytes # 0.040 10^3/ul (0.0-0.031) Neutrophils # 9.1 10^3/ul (1.6-7.5) Lymphocytes # 0.3 10^3/ul (0.8-2.9) Monocytes # 0.5 10^3/ul (0.3-0.9) Eosinophils # 0.0 10^3/ul (0.0-0.5) Basophils # 0.0 10^3/ul (0.0-0.1) Nucleated Red Blood Cells # 0.0 10^3/ul (0.0-0.0) Sodium Level 132 mmol/L (135-144) Potassium Level 3.6 mmol/L (3.5-5.1) Chloride Level 99 mmol/L (97-110) Carbon Dioxide Level 21 mmol/L (21-31) Anion Gap 12 (5-13) Blood Urea Nitrogen 8 mg/dl (7-20) Creatinine 0.76 mg/dl (0.61-1.24) Est Glomerular Filtrat Rate mL/min > 60 mL/min (>60) Glucose Level 153 mg/dl (70-220) Calcium Level 9.2 mg/dl (8.4-10.2) CITLALY CALERO Jun 01, 2018 16:31
[2018-06-01 21:04] VITALS: BP 111/74; PULSE 84; RESP 20
--- NOTE | 2018-06-01 23:45 | CONS ---
Assessment/Plan Assessment/Plan Hospital Course (Demo Recall) METASTATIC PROSTATE CANCER Lymphadenopathy- CT shows abdominal and pelvic lymphadenopathy with necrosis, likely contributing to pain. POST CHEMO RECORD - INCOMPLETE, will request record CONT PAIN CONTROL F-UP AT [facility] Diarrhea Cancer-related pain-history of prostate cancer metastasis. PAIN CONTROL Consultation Date/Type/Reason Admit Date/Time May 28, 2018 Date of Consultation: Jun 01, 2018 Type of Consult [facility] Reason for Consultation PROSTATE CANCER Requesting Provider: CITLALY CALERO Date/Time of Note DATE: 06/01/18 TIME: 23:45 Hx of Present Illness THE PT IS A 67-year-old gentleman who has a history of metastatic prostate cancer last chemotherapy was done 2 months He follows with Dr. Deanna Casillas at [facility] oncology. Finished chemotherapy 2 months ago. record - incomplete Pt presented with increased discomfort, pain in his shoulder and left hip patient states no pain medications at home other than Tylenol. He also developed diarrhea beginning approximately 3 days prior to his presentation which has subsequently discontinued. no major weight loss patient complete record is not available Subjective hx not possible: other (In pain with minimal movement) Eyes: No no complaints, No pain, No discharge, No redness, No visual change, No other ENT: No no complaints, No bleeding, No pain, No congestion, No discharge, No dysphagia, No sore throat, No other Respiratory: No no complaints, No pain, No cough, No pleuritic pain, No shortness of breath, No sputum, No wheezing, No other Cardiovascular: No no complaints, No chest pain, No edema, No lightheadedness, No orthopenea, No palpitations, No paroxysmal nocturnal dyspnea, No other Gastrointestinal: No no complaints, No pain, No blood, No constipation, No decreased appetite, No diarrhea, No flatus, No nausea, No passing stool, No vomiting, No other Genitourinary: No no complaints, No bleeding, No dysuria, No discharge, No flank pain, No hematuria, No other Neurologic: No no complaints, No confusion, No dizziness, No focal-weakness, No headache, No syncope, No seizure, No other Initial Consultation Hx Past Medical History Medical History: cancer, other (Otherwise unremarkable) Home Meds Reported Medications Tamsulosin Hcl* (Tamsulosin Hcl*) 0.4 Mg Cap.er.24h, 0.4 MG PO HS, CAP 05/28/18 Medications Current Medications Sodium Chloride 1,000 ml @ 75 mls/hr [id number] IV Last administered on 06/01/18 04:03; Admin Dose 75 MLS/HR; Start 05/28/18 at 14:50 IV Flush (NS 3 ml) 3 ml PER PROTOCOL IV ; Start 05/28/18 at 15:00 Ondansetron HCl (Zofran Inj) 4 mg Q6H PRN IV NAUSEA/VOMITING Last administered on 05/30/18 13:24; Admin Dose 4 MG; Start 05/28/18 at 15:00 Acetaminophen/ Hydrocodone Bitart ([place] (5/325)) 1 tab Q6H PRN PO .MOD PAIN 4- 6 Last administered on 05/30/18 10:16; Admin Dose 1 TAB; Start 05/28/18 at 15:00 Enoxaparin Sodium (Lovenox) 40 mg DAILY SC Last administered on 05/31/18 08:26; Admin Dose 40 MG; Start 05/29/18 at 09:00 Ibuprofen (Motrin) 600 mg Q6H PRN PO bone pain; Start 05/28/18 at 15:00 Morphine Sulfate (Ms Contin (Er)) 30 mg BID PO Last administered on 05/31/18 21:04; Admin Dose 30 MG; Start 05/30/18 at 21:00 Baclofen (Lioresal) 10 mg TID PO Last administered on 05/31/18 21:04; Admin Dose 10 MG; Start 05/30/18 at 15:00 Hydromorphone HCl (Dilaudid) 1 mg Q3H PRN IV SEVERE PAIN LEVEL 7-10 Last administered on 05/31/18 15:34; Admin Dose 1 MG; Start 05/31/18 at 15:30 Pantoprazole (Protonix Tab) 40 mg BID@06,18 PO Last administered on 06/01/18 05:59; Admin Dose 40 MG; Start 05/31/18 at 18:00 Allergies: Coded Allergies: tetracycline (Unverified Allergy, Unknown, 05/28/18) Past Surgical History Past Surgical Hx: other (History of left ureteral stent placement x2, 3 of bladder reconstruction) Social History Alcohol Use: none Smoking Status: Never smoker Drug Use: none Past Medical History Medical History: cancer, other (Otherwise unremarkable) Home Meds Reported Medications Tamsulosin Hcl* (Tamsulosin Hcl*) 0.4 Mg Cap.er.24h, 0.4 MG PO HS, CAP 05/28/18 Medications Current Medications Sodium Chloride 1,000 ml @ 75 mls/hr [id number] IV Last administered on 06/01/18 20:58; Admin Dose 75 MLS/HR; Start 05/28/18 at 14:50 IV Flush (NS 3 ml) 3 ml PER PROTOCOL IV ; Start 05/28/18 at 15:00 Ondansetron HCl (Zofran Inj) 4 mg Q6H PRN IV NAUSEA/VOMITING Last administered on 05/30/18 13:24; Admin Dose 4 MG; Start 05/28/18 at 15:00 Enoxaparin Sodium (Lovenox) 40 mg DAILY SC Last administered on 06/01/18 09:01; Admin Dose 40 MG; Start 05/29/18 at 09:00 Baclofen (Lioresal) 10 mg TID PO Last administered on 06/01/18 20:57; Admin Dose 10 MG; Start 05/30/18 at 15:00 Pantoprazole (Protonix Tab) 40 mg BID@06,18 PO Last administered on 06/01/18 17:01; Admin Dose 40 MG; Start 05/31/18 at 18:00 Methadone HCl (Methadone) 2 mg Q4 PO Last administered on 06/01/18 21:45; Admin Dose 2 MG; Start 06/01/18 at 09:00 Ketorolac Tromethamine (Toradol) 15 mg Q6H IV Last administered on 06/01/18 20:57; Admin Dose 15 MG; Start 06/01/18 at 09:00; Stop 06/04/18 at 08:59 Hydromorphone HCl (Dilaudid) 2 mg Q4H PRN PO SEVERE PAIN LEVEL 7-10; Start 06/01/18 at 09:00 Methylprednisolone Sodium Succinate (Solu-Medrol) 60 mg Q6 IV Last administered on 06/01/18 17:01; Admin Dose 60 MG; Start 06/01/18 at 09:00 Methylnaltrexone Sulphur (Relistor) 12 mg Q48H SC Last administered on 3/14/19at 12:19; Admin Dose 12 MG; Start 06/01/18 at 09:00 Albuterol/ Ipratropium (Duoneb) 3 ml Q4H RESP THERAPY PRN HHN SHORTNESS OF BREATH; Start 06/01/18 at 13:30 Allergies: Coded Allergies: tetracycline (Unverified Allergy, Unknown, 05/28/18) Past Surgical History Past Surgical Hx: other (History of left ureteral stent placement x2, 3 of bladder reconstruction) Social History Alcohol Use: none Smoking Status: Never smoker Drug Use: none Exam/Review of Systems Exam Vitals Vital Signs Date Temp Pulse Resp B/P (MAP) Pulse Ox O2 O2 Flow FiO2 Time Delivery Rate 06/01/18 98.0 84 20 111/74 98 Room Air 21:04 (86) Intake and Output 05/31/18 05/31/18 06/01/18 1515:00 23:00 07:00 IntakeIntake Total 600 ml 370 ml 1030 ml BalanceBalance 600 ml 370 ml 1030 ml Exam Constitutional: alert, oriented, well developed, distress, frail Psych: anxiety Head: normocephalic, atraumatic; No lacerations, No hematomas, No other Eyes: nl conjunctiva, EOMI, nl lids, nl sclera, PERRL; No icteric, No fundi, disc, No other Neck: supple, non-tender; No jvd, No bruits, No masses, No thyromegaly, No nuchal rigidity, No other Respiratory: clear to auscultation, normal air movement Cardiovascular: No regular rate and rhythm, No nl pulses, No bruits, No diastolic murmur, No edema, No gallop, No irregular rhythm, No jugular venous distention (JVD), No murmurs/extra sounds, No rub, No systolic murmur, No S3, No S4, No other Gastrointestinal: No soft, No nl liver, spleen, No non-tender, No ascites, No bowel sounds, No distended, No firm, No hepatomegaly, No mass, No rebound or guarding, No splenomegaly, No surgical scars, No tender, No other Genitourinary - Male: No nl penis, No nl scrotum, No CVA tenderness, No discharge, No other Musculoskeletal: other (Negative for clonus) Extremities: normal pulses; No calf tenderness, No cyanosis, No clubbing, No edema, No pitting pedal edema, No palpable cord, No tenderness, No other Neurological: neg Results Result Diagram: 06/01/18 1312 06/01/18 1312 Results 24hrs Laboratory Tests Test 06/01/18 13:12 White Blood Count 10.0 # Red Blood Count 3.20 L Hemoglobin 9.3 L Hematocrit 28.7 L Mean Corpuscular Volume 89.7 Mean Corpuscular Hemoglobin 29.1 Mean Corpuscular Hemoglobin Concent 32.4 Red Cell Distribution Width 14.2 Platelet Count 340 Mean Platelet Volume 9.2 Immature Granulocytes % 0.400 Neutrophils % 91.2 H Lymphocytes % 2.5 L Monocytes % 5.4 Eosinophils % 0.2 Basophils % 0.3 Nucleated Red Blood Cells % 0.0 Immature Granulocytes # 0.040 H Neutrophils # 9.1 H Lymphocytes # 0.3 L Monocytes # 0.5 Eosinophils # 0.0 Basophils # 0.0 Nucleated Red Blood Cells # 0.0 Sodium Level 132 L Potassium Level 3.6 Chloride Level 99 Carbon Dioxide Level 21 Anion Gap 12 Blood Urea Nitrogen 8 Creatinine 0.76 Est Glomerular Filtrat Rate mL/min > 60 Glucose Level 153 Calcium Level 9.2 Imaging Imaging PROCEDURE: CT Abdomen and Pelvis with IV contrast. CLINICAL INDICATION: Abdominal pain TECHNIQUE: CT of the abdomen and pelvis with 100 cc Omnipaque-300 IV contrast. Coronal and sagittal reformatted images. DICOM images are available. One or more of the following dose reduction techniques were used: automated exposure control, adjustment of the mA and/or kV according to patient size, use of it erative reconstruction technique. CTDI 9.0 mGy, DLP 516 mGy-cm. COMPARISON: None. FINDINGS: Lower thorax: Normal. Liver: Normal. Biliary: Normal gallbladder. No biliary dilatation. Pancreas: Normal. Spleen: Normal. Adrenal glands: Normal. Genitourinary: Left ureteral stent is in place. There is moderate left hydroureteronephrosis. Urinary bladder is moderately distended. Vascular: No abdominal aortic aneurysm or dissection. Aortoiliac atherosclerotic calcifications. Lymph nodes: Extensive lymphadenopathy is identified in the retrocrural region, periaortic retroperitoneum, and bilateral pelvis. The largest lymph node measures 6.9 x 4.1 cm in the left pelvic sidewall (3-136) - this node demonstrates areas of hypoenhancement and adjacent inflammation/edema, possibly indicating necrosis. Gastrointestinal: No bowel obstruction. Normal appendix. Scattered colonic diverticula, without diverticulitis. Peritoneum: No free air, free fluid or abscess. Reproductive organs: Mildly enlarged prostate. Musculoskeletal: Extensive osteosclerotic metastases are identified. IMPRESSION: 1. Extensive lymphadenopathy is identified, compatible with neoplasm, possibly metastatic disease or lymphoma. Dominant left pelvic sidewall lymph node demonstrates areas of hypoenhancement and adjacent inflammation/edema, possibly indicating necrosis. 2. Extensive sclerotic osseous metastases. 3. Mildly enlarged prostate, possibly indicating underlying primary prostate malignancy. 4. Left ureteral stent is in place. There is moderate left hydroureteronephrosis. 5. Urinary bladder is moderately distended, concerning for urinary retention / bladder outflow obstruction. PROCEDURE: MRI OF THE LUMBAR SPINE. CLINICAL INDICATION: Metastatic disease to the spine. TECHNIQUE: Multiple MRI images were obtained utilizing multiple sequences before and after the intravenous administration of 10 cc ProHance gadolinium, including localizers, sagittal T1, sagittal T2, sagittal T2 with fat saturation, axial T2 and axial T1 , postcontrast axial and sagittal T1. Images were interpreted on high-resolution PACS system. COMPARISON: Insert prior FINDINGS: Diminutive ribs at T12. 5 non-rib bearing lumbar type vertebral bodies. Vertebral body heights are maintained. No compression fracture identified. Mild straightening of the lumbar lordosis. Minimal left convex curvature of the lumbar spine. Diffusely heterogeneous marrow with redemonstration of sclerotic and is most prominent in the L2, L4, L5 and S1 vertebral bodies and strain post contrast enhancement. Additional foci of sclerotic lesions are noted within the bilateral iliac bones, most prominent in the left iliac bone. Visualized cord signal is intact. Conus terminates at T12-L1. 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 Left hydronephrosis with ureteral stent partially imaged. Diffuse large retroperitoneal and para-aortic lymphadenopathy noted again. Mild congenitally short pedicles/spinal canal. Findings at specific disc levels: T12-L1: Disc height and signal is intact. Mild facet hypertrophy. No significant disc bulge, spinal canal stenosis or neural foraminal narrowing. L1-L2: Minimal disc desiccation without significant disc height loss. Anterior osteophyte formation minimally. Mild facet hypertrophy. Small broad-based disc bulge with more focal left foraminal disc protrusion measuring approximate 2.5 ml stenosis neural foraminal narrowing. L2-L3: Disc desiccation and mild disc height loss. Anterior osteophyte formation. Mild facet hypertrophy. Broad-based disc bulge with 2.5 mm left suba rticular/foraminal zone disc protrusion and likely annular fissure with borderline mild left neural foraminal narrowing. Mild effacement of the ventral thecal sac and subarticular recesses. AP diameter of the thecal sac at midline is 9 mm. L3-L4: Disc desiccation and borderline mild disc height loss. Anterior osteophyte formation. Mild facet hypertrophy and ligamentum flavum infolding with trace bilateral facet joint effusions. 3 mm broad-based disc bulge most prominent in the left subarticular/foraminal zone. Effacing the ventral thecal sac and narrowing the subarticular recesses. AP diameter of the thecal sac at midline is 7.5 mm. Mild to moderate right and mild left neural foraminal brent rowing. L4-L5: Disc height and signal is intact. Mild facet hypertrophy and ligamentum flavum infolding. Broad-based disc bulge measuring approximately 2-3 mm with more focal central disc protrusion. Left subarticular zone annular fissure. Narrowing of the left greater than right subarticular recesses with likely contact of the traversing L5 nerve roots. AP diameter of the thecal sac at midline is 10 mm mild bilateral neural foraminal narrowing. L5-S1: Disc height and signal is intact. Anterior osteophyte formation. Mild facet hypertrophy. 2-3 mm broad-based disc bulge with borderline mild left neural foraminal narrowing. No significant stenosis. IMPRESSION: 1. Metastatic disease throughout the visualized lumbar spine most prominent at the L2, L4, L5 and S1 vertebral bodies. No compression fracture. 2. Large bulky retroperitoneal/periaortic lymphadenopathy may be metastatic disease or lymphoma. 3. Multilevel degenerative disc and facet disease with multilevel disc bulge/ protrusions as detailed above level by level, with mild acquired spinal canal stenosis and subarticular recess narrowing at L3-L4. Left greater than right subarticular recess narrowing at L4-L5 and likely contact of the traversing L5 nerve roots. 4. Multilevel neural foraminal narrowing as detailed above level by level. 5. 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 6. Additional findings as above. PROCEDURE: XR Abdomen. CLINICAL INDICATION: abd distention TECHNIQUE: AP abdomen x-ray, 2 views. COMPARISON: CT 05/28/2018 FINDINGS: There is a left ureteral stent. There is now seen prominent dilation of bowel loops in the mid right abdomen, up to 7.0 cm. These may reflect ascending colon and transverse colon. There is gas seen within the descending colon and rectum. There are no abnormal calcifications overlying the urinary tracts. There is no gross abnormal soft tissue mass. The osseus structures are unremarkable. IMPRESSION: 1. Dilation of bowel loops in the mid abdomen and right abdomen, possibly reflecting distension of the ascending and transverse colon, up to 7.0 cm. This may reflect a partial small bowel obstruction, or ileus. 2. Left ureteral stent. Medications Medication Current Medications Sodium Chloride 1,000 ml @ 75 mls/hr [id number] IV Last administered on 06/01/18 20:58; Admin Dose 75 MLS/HR; Start 05/28/18 at 14:50 IV Flush (NS 3 ml) 3 ml PER PROTOCOL IV ; Start 05/28/18 at 15:00 Ondansetron HCl (Zofran Inj) 4 mg Q6H PRN IV NAUSEA/VOMITING Last administered on 05/30/18 13:24; Admin Dose 4 MG; Start 05/28/18 at 15:00 Enoxaparin Sodium (Lovenox) 40 mg DAILY SC Last administered on 06/01/18 09:01; Admin Dose 40 MG; Start 05/29/18 at 09:00 Baclofen (Lioresal) 10 mg TID PO Last administered on 06/01/18 20:57; Admin Dose 10 MG; Start 05/30/18 at 15:00 Pantoprazole (Protonix Tab) 40 mg BID@06,18 PO Last administered on 06/01/18 17:01; Admin Dose 40 MG; Start 05/31/18 at 18:00 Methadone HCl (Methadone) 2 mg Q4 PO Last administered on 06/01/18 21:45; Admin Dose 2 MG; Start 06/01/18 at 09:00 Ketorolac Tromethamine (Toradol) 15 mg Q6H IV Last administered on 06/01/18 20:57; Admin Dose 15 MG; Start 06/01/18 at 09:00; Stop 06/04/18 at 08:59 Hydromorphone HCl (Dilaudid) 2 mg Q4H PRN PO SEVERE PAIN LEVEL 7-10; Start 06/01/18 at 09:00 Methylprednisolone Sodium Succinate (Solu-Medrol) 60 mg Q6 IV Last administered on 06/01/18at 17:01; Admin Dose 60 MG; Start 06/01/18 at 09:00 Methylnaltrexone Sulphur (Relistor) 12 mg Q48H SC Last administered on 06/01/18at 12:19; Admin Dose 12 MG; Start 06/01/18 at 09:00 Albuterol/ Ipratropium (Duoneb) 3 ml Q4H RESP THERAPY PRN HHN SHORTNESS OF BREATH; Start 06/01/18 at 13:30 LORETTA MURRAY MD Jun 01, 2018 23:45
[2018-06-02] MEDS: METHADONE 5 MG TAB PO SCH ×5 (00:13→17:29)
[2018-06-02] MEDS: METHYLPREDNISOLONE 125 MG INJ IV SCH ×2 (00:13→05:12)
[2018-06-02] MEDS: KETOROLAC 15 MG INJ IV SCH ×2 (03:06→10:34)
[2018-06-02 03:34] VITALS: BP 108/61; PULSE 66; RESP 18
[2018-06-02] MEDS: PANTOPRAZOLE (EC) 40 MG TAB PO SCH ×2 (05:12→17:33)
[2018-06-02 08:24] VITALS: BP 100/68; PULSE 59; RESP 18
--- NOTE | 2018-06-02 08:57 | CONS ---
Assessment/Plan Assessment/Plan Assessment/Plan (Daily) Diffuse osseous pain is controlled on methadone 2 mg every 4 hours scheduled. MRI shows diffuse disease process throughout the lumbosacral spine but no compression fracture was bulky lymphadenopathy is retroperitoneal region. We will continue with methadone I added on a low-dose of Dilaudid for breakthrough pain this I believe he will probably not continue to need in the near future continue with Relistor and steroids discontinue Toradol. Patient is possibly scheduled to be discharged to all of you soon. Denies nausea vomiting chest pain shortness of breath cough he is not negotiating for higher doses of pain control medication denies pruritus mental cloudiness dizziness diplopia disor ientation he has not unkempt and he appears to be completely neurologically intact. Consultation Date/Type/Reason Admit Date/Time May 28, 2018 at 14:53 Initial Consult Date 06/01/18 Requesting Provider: CITLALY CALERO Date/Time of Note DATE: 06/02/18 TIME: 08:56 Exam/Review of Systems Exam Vitals Vital Signs Date Temp Pulse Resp B/P (MAP) Pulse Ox O2 O2 Flow FiO2 Time Delivery Rate 06/02/18 97.8 59 18 100/68 98 Room Air 08:24 (79) Intake and Output 06/01/18 06/01/18 06/02/18 1515:00 23:00 07:00 IntakeIntake Total 480 ml 1070 ml 600 ml OutputOutput Total 200 ml 250 ml BalanceBalance 280 ml 820 ml 600 ml Constitutional: alert, oriented, well developed Musculoskeletal: other (Age of motion grossly intact. Left knee grossly intact in his right upper extremity without severe discomfort) Neurological: BACK END DEVELOPER II-XII intact, nl mental status, nl speech, nl strength Results Result Diagram: 06/02/18 0503 06/02/18 0503 Results 24hrs Laboratory Tests Test 06/01/18 13:12 06/02/18 05:03 White Blood Count 10.0 # 6.9 # Red Blood Count 3.20 L 3.05 L Hemoglobin 9.3 L 9.0 L Hematocrit 28.7 L 27.1 L Mean Corpuscular Volume 89.7 88.9 Mean Corpuscular Hemoglobin 29.1 29.5 Mean Corpuscular Hemoglobin Concent 32.4 33.2 Red Cell Distribution Width 14.2 14.0 Platelet Count 340 347 Mean Platelet Volume 9.2 9.6 Immature Granulocytes % 0.400 0.600 H Neutrophils % 91.2 H 88.9 H Lymphocytes % 2.5 L 5.1 L Monocytes % 5.4 5.3 Eosinophils % 0.2 0.0 Basophils % 0.3 0.1 Nucleated Red Blood Cells % 0.0 0.0 Immature Granulocytes # 0.040 H 0.040 H Neutrophils # 9.1 H 6.2 Lymphocytes # 0.3 L 0.4 L Monocytes # 0.5 0.4 Eosinophils # 0.0 0.0 Basophils # 0.0 0.0 Nucleated Red Blood Cells # 0.0 0.0 Sodium Level 132 L 129 L Potassium Level 3.6 3.6 Chloride Level 99 97 Carbon Dioxide Level 21 21 Anion Gap 12 11 Blood Urea Nitrogen 8 12 Creatinine 0.76 0.71 Est Glomerular Filtrat Rate mL/min > 60 > 60 Glucose Level 153 143 Calcium Level 9.2 9.1 Phosphorus Level 3.7 Magnesium Level 1.9 Medications Medication Current Medications Sodium Chloride 1,000 ml @ 75 mls/hr [id number] IV Last administered on 06/01/18 20:58; Admin Dose 75 MLS/HR; Start 05/28/18 at 14:50 IV Flush (NS 3 ml) 3 ml PER PROTOCOL IV ; Start 05/28/18 at 15:00 Ondansetron HCl (Zofran Inj) 4 mg Q6H PRN IV NAUSEA/VOMITING Last administered on 05/30/18 13:24; Admin Dose 4 MG; Start 05/28/18 at 15:00 Enoxaparin Sodium (Lovenox) 40 mg DAILY SC Last administered on 06/01/18 09:01; Admin Dose 40 MG; Start 05/29/18 at 09:00 Baclofen (Lioresal) 10 mg TID PO Last administered on 06/01/18 20:57; Admin Dose 10 MG; Start 05/30/18 at 15:00 Pantoprazole (Protonix Tab) 40 mg BID@06,18 PO Last administered on 06/02/18 05:12; Admin Dose 40 MG; Start 05/31/18 at 18:00 Methadone HCl (Methadone) 2 mg Q4 PO Last administered on 06/02/18 05:12; Admin Dose 2 MG; Start 06/01/18 at 09:00 Ketorolac Tromethamine (Toradol) 15 mg Q6H IV Last administered on 06/02/18at 03:06; Admin Dose 15 MG; Start 06/01/18 at 09:00; Stop 06/04/18 at 08:59 Hydromorphone HCl (Dilaudid) 2 mg Q4H PRN PO SEVERE PAIN LEVEL 7-10; Start 06/01/18 at 09:00 Methylprednisolone Sodium Succinate (Solu-Medrol) 60 mg Q6 IV Last administered on 06/02/18at 05:12; Admin Dose 60 MG; Start 06/01/18 at 09:00 Methylnaltrexone [place] (Relistor) 12 mg Q48H SC Last administered on 06/01/18at 12:19; Admin Dose 12 MG; Start 06/01/18 at 09:00 Albuterol/ Ipratropium (Duoneb) 3 ml Q4H RESP THERAPY PRN HHN SHORTNESS OF BREATH; Start 06/01/18 at 13:30 CRISTIAN NICOLE Jun 02, 2018 08:57
[2018-06-02] MEDS: ENOXAPARIN 40 MG/0.4 ML SYG SC SCH (10:33)
[2018-06-02] MEDS: BACLOFEN 10 MG TAB PO SCH ×2 (10:34→15:14)
[2018-06-02] MEDS: SOD CHLORIDE 0.9% 1,000 ML IV SCH (11:08)
--- NOTE | 2018-06-02 13:43 | DS ---
Date/Time of Note Date/Time of Note DATE: 06/02/18 TIME: 13:42 Discharge Summary Admission/Discharge Info Admit Date/Time May 28, 2018 at 14:53 Discharge Date/Time Discharge Diagnosis #Diarrhea-none noted since admission, apparently patient was having 3 days of very frequent diarrhea prior to admission- Moderate risk of C diff in this cancer patient on chemotherapy, even though normal WBCs #Cancer-related pain-history of prostate cancer metastasis. CT abdomen pelvis results noted including findings of extensive osseous metastasis; per patient, he was treated over the last 2 years up until 2 months ago at [facility] including chemotherapy treatment at that time: Patient has not been taking home analgesics-hence he has bone mets causing pain with ambulation. -We will add Dilaudid 1 mg IV every 3 hours as needed to the 30 mg MS Contin twice daily, also continue Warden as needed -Continue baclofen 3 times daily as well - For burning epigastric pain, continue PPI BID - May benefit from appetite stimulant like Marinol. However patient currently appears well nourished, will defer this decision to his oncologist. -Follow-up recommendations from PT inderjit -Again, previously the patient had been treated at [facility] under the care of Dr. Suma Renteria hematology oncology fellow for the last 2 years. Stopped chemotherapy 2 months ago at their instructions. Have attempted to try and reach out to this doctor and attempt for a transfer there since the patient is well-known at their facility for continuity of care-Case management is presently working on this. #Lymphadenopathy- CT shows abdominal and pelvic lymphadenopathy with necrosis, likely contributing to pain. -Continue pain control as above. Patient Condition: Serious Hx of Present Illness 67 yo man with metastatic prostate cancer who presents with abdominal pain. He follows Dr. Deanna Casillas at [facility] for oncology. Finished chemotherapy 2 months ago. He reports that since then, he has lost his sense of taste and has very poor appetite. Also reports chronic diarrhea and diffuse bone pain. The last 3-4 days he has been bedridden more than 50% of the day due to bone pain. He reports normally can do all ADLs. He also reports diffuse burning abdominal pain, "like my stomach is hungry but I feel nauseated". Also, reports three days of diarrhea more frequent than usual every 30 minutes. He has not vomited. He has been prescribed norco but he rarely takes it, reports it doesn't improve abdominal discomfort. Takes omeprazole daily. Discussed goals of care and code status. He is amenable to changing code status in the future but currently wants to remain full code. Understands the chronic progressive nature of his disease. In the ED he was afebrile, pulse 90, BP 109/64, sat 96% RA. Labs unremarkable. UA negative, lipase 91. CT demonstrates diffuse lymphadenopathy with a large L pelvic sidewall lymph node which appears necrotic. Hospital Course Patient was admitted and placed on pain control medications. These were titrated up accordingly to the patient's pain symptoms. He was also seen by pain management team. His CT scan abdomen pelvis results were reviewed, showing extensive lymphadenopathy possibly metastatic disease or lymphoma. Also areas in the left pelvic sidewall of possible inflammation edema or necrosis. Also extensive sclerotic osseous metastasis. Patient also worked in physical therapy while here in the hospital. He had some diarrhea symptoms that initially resolved but were still somewhat prominent by the time of discharge. No fevers. But for some burning epigastric pain he was also placed on PPI. Patient still having occasional pain by the time of discharge, he has been accepted today for transfer to his primary Hospital [facility]. See printed medical reconciliation sheet for full list of discharge medication. Home Meds Reported Medications Tamsulosin Hcl* (Tamsulosin Hcl*) 0.4 Mg Cap.er.24h, 0.4 MG PO HS, CAP 05/28/18 Primary Care Provider Not On Staff Doctor Time spent on discharge: > 30 minutes Pending Labs Laboratory Tests Test 06/02/18 05:03 White Blood Count 6.9 10^3/ul (4.8-10.8) Red Blood Count 3.05 10^6/ul (4.70-6.10) Hemoglobin 9.0 g/dl (14.0-18.0) Hematocrit 27.1 % (42.0-52.0) Mean Corpuscular Volume 88.9 fl (82.0-101.0) Mean Corpuscular Hemoglobin 29.5 pg (29.0-33.0) Mean Corpuscular Hemoglobin Concent 33.2 g/dl (32.0-37.0) Red Cell Distribution Width 14.0 % (11.5-14.5) Platelet Count 347 10^3/UL (140-415) Mean Platelet Volume 9.6 fl (7.4-10.4) Immature Granulocytes % 0.600 % (0.001-0.429) Neutrophils % 88.9 % (39.0-77.0) Lymphocytes % 5.1 % (15.0-51.0) Monocytes % 5.3 % (0.0-11.0) Eosinophils % 0.0 % (0.0-7.0) Basophils % 0.1 % (0.0-2.0) Nucleated Red Blood Cells % 0.0 /100WBC (0.0-0.0) Immature Granulocytes # 0.040 10^3/ul (0.0-0.031) Neutrophils # 6.2 10^3/ul (1.6-7.5) Lymphocytes # 0.4 10^3/ul (0.8-2.9) Monocytes # 0.4 10^3/ul (0.3-0.9) Eosinophils # 0.0 10^3/ul (0.0-0.5) Basophils # 0.0 10^3/ul (0.0-0.1) Nucleated Red Blood Cells # 0.0 10^3/ul (0.0-0.0) Sodium Level 129 mmol/L (135-144) Potassium Level 3.6 mmol/L (3.5-5.1) Chloride Level 97 mmol/L (97-110) Carbon Dioxide Level 21 mmol/L (21-31) Anion Gap 11 (5-13) Blood Urea Nitrogen 12 mg/dl (7-20) Creatinine 0.71 mg/dl (0.61-1.24) Est Glomerular Filtrat Rate mL/min > 60 mL/min (>60) Glucose Level 143 mg/dl (70-220) Calcium Level 9.1 mg/dl (8.4-10.2) Phosphorus Level 3.7 mg/dl (2.5-4.9) Magnesium Level 1.9 mg/dl (1.7-2.5) CITLALY CALERO Jun 02, 2018 13:43
[2018-06-02 14:00] VITALS: BP 110/68; PULSE 60; RESP 18
--- NOTE | 2018-06-02 15:41 | CONS ---
Assessment/Plan Assessment/Plan Hospital Course (Demo Recall) METASTATIC PROSTATE CANCER Lymphadenopathy- CT shows abdominal and pelvic lymphadenopathy with necrosis, likely contributing to pain. POST CHEMO RECORD - INCOMPLETE CONT PAIN CONTROL F-UP AT [facility] Diarrhea Cancer-related pain-history of prostate cancer metastasis. PAIN CONTROL Consultation Date/Type/Reason Admit Date/Time May 28, 2018 at 14:53 Initial Consult Date 06/01/18 [facility] Request[facility] Provider: CITLALY CALERO Date/Time of Note DATE: 06/02/18 TIME: 15:41 Exam/Review of Systems Exam Vitals Vital Signs Date Temp Pulse Resp B/P (MAP) Pulse Ox O2 O2 Flow FiO2 Time Delivery Rate 06/02/18 97.8 59 18 100/68 98 Room Air 08:24 (79) Intake and Output 06/01/18 06/01/18 06/02/18 1515:00 23:00 07:00 IntakeIntake Total 480 ml 1070 ml 600 ml OutputOutput Total 200 ml 250 ml BalanceBalance 280 ml 820 ml 600 ml Results Result Diagram: 06/02/18 0503 06/02/18 0503 Results 24hrs Laboratory Tests Test 06/02/18 05:03 White Blood Count 6.9 # Red Blood Count 3.05 L Hemoglobin 9.0 L Hematocrit 27.1 L Mean Corpuscular Volume 88.9 Mean Corpuscular Hemoglobin 29.5 Mean Corpuscular Hemoglobin Concent 33.2 Red Cell Distribution Width 14.0 Platelet Count 347 Mean Platelet Volume 9.6 Immature Granulocytes % 0.600 H Neutrophils % 88.9 H Lymphocytes % 5.1 L Monocytes % 5.3 Eosinophils % 0.0 Basophils % 0.1 Nucleated Red Blood Cells % 0.0 Immature Granulocytes # 0.040 H Neutrophils # 6.2 Lymphocytes # 0.4 L Monocytes # 0.4 Eosinophils # 0.0 Basophils # 0.0 Nucleated Red Blood Cells # 0.0 Sodium Level 129 L Potassium Level 3.6 Chloride Level 97 Carbon Dioxide Level 21 Anion Gap 11 Blood Urea Nitrogen 12 Creatinine 0.71 Est Glomerular Filtrat Rate mL/min > 60 Glucose Level 143 Calcium Level 9.1 Phosphorus Level 3.7 Magnesium Level 1.9 Medications Medication Current Medications Sodium Chloride 1,000 ml @ 75 mls/hr [id number] IV Last administered on 06/02/18at 11:08; Admin Dose 75 MLS/HR; Start 05/28/18 at 14:50 IV Flush (NS 3 ml) 3 ml PER PROTOCOL IV ; Start 05/28/18 at 15:00 Ondansetron HCl (Zofran Inj) 4 mg Q6H PRN IV NAUSEA/VOMITING Last administered on 05/30/18 13:24; Admin Dose 4 MG; Start 05/28/18 at 15:00 Enoxaparin Sodium (Lovenox) 40 mg DAILY SC Last administered on 06/02/18at 10:33; Admin Dose 40 MG; Start 05/29/18 at 09:00 Baclofen (Lioresal) 10 mg TID PO Last administered on 06/02/18 15:14; Admin Dose 10 MG; Start 05/30/18 at 15:00 Pantoprazole (Protonix Tab) 40 mg BID@06,18 PO Last administered on 06/02/18at 05:12; Admin Dose 40 MG; Start 05/31/18 at 18:00 Methadone HCl (Methadone) 2 mg Q4 PO Last administered on 06/02/18at 15:15; Admin Dose 2 MG; Start 06/01/18 at 09:00 Hydromorphone HCl (Dilaudid) 2 mg Q4H PRN PO SEVERE PAIN LEVEL 7-10; Start 06/01/18 at 09:00 Methylnaltrexone Smoot (Relistor) 12 mg Q48H SC Last administered on 06/01/18at 12:19; Admin Dose 12 MG; Start 06/01/18 at 09:00 Albuterol/ Ipratropium (Duoneb) 3 ml Q4H RESP THERAPY PRN HHN SHORTNESS OF BREATH; Start 06/01/18 at 13:30 Methylprednisolone Sodium Succinate (Solu-Medrol) 60 mg DAILY IV ; Start 06/03/18 at 09:00 LORETTA MURRAY MD Jun 02, 2018 15:41
[2018-06-03] MEDS ORDERED: METHYLPREDNISOLONE 125 MG INJ IV SCH (09:00)
== END 2018-06-02 19:30 | disposition short-term general hospital (02) | DRG 948 ==
LOC: E/R 08:48 → PP2 14:53 → EDBEDREQ 15:54 → PP2 19:37
PROVIDERS: ADMIT Internal Medicine; ATTEND Hospitalist
DX: G89.3 Neoplasm related pain (acute) (chronic) (principal); R59.0 Localized enlarged lymph nodes; C61 Malignant neoplasm of prostate; R19.7 Diarrhea, unspecified
CPT/HCPCS: 36415; 71045; 72158; 74018; 74177; 80048; 80053; 80061; 81001; 82150; 83036; 83690; 83735; 84100; 84153; 84154; 84443; 84484; 85025; 85610; 85730; 87040; 87075; 87086; 96374; 96375; 96376; 97110; 97116; 97162; 97530; C9113; J1170; J1650; J1885; J2270; J2405; J2930; J7030; Q9967

== ENCOUNTER 2018-07-22 14:00 | Emergency (ER) | payer MEDICARE, OTHER ==
[~2018-07-22] VITALS: Ht 167.6 cm; Wt 63.6 kg
[~2018-07-22 14:00] MED LIST: TAMS0.4C2 PO
[2018-07-22 14:02] VITALS: Ht 167.6 cm; Wt 63.6 kg
[2018-07-22] MEDS ORDERED: SOD CHLORIDE 0.9% 1,000 ML IV STA (15:27)
[2018-07-22] MEDS ORDERED: HYDROmorphONE 1 MG/ML SYG IV STA ×2 (15:27→17:43)
[2018-07-22] MEDS ORDERED: ONDANSETRON 4 MG INJ IV STA ×2 (15:27→17:43)
[2018-07-22] MEDS ORDERED: SOD CHLORIDE 0.9% 100 ML ONE (16:00)
[2018-07-22] MEDS ORDERED: IOHEXOL 300MG/ML 150 ML BTL ONE (16:00)
[2018-07-22] MEDS ORDERED: METR500T PO (17:23)
[2018-07-22] MEDS ORDERED: DIPH1TAB PO (17:23)
[2018-07-22] MEDS ORDERED: CIPR500T4 PO (17:23)
[2018-07-22] MEDS ORDERED: HYDR-3980 PO (17:29)
--- NOTE | 2018-07-22 17:29 | ERD ---
ER Documentation Chief Complaint Chief Complaint abdominal pain and diarrhea today, hx cancer HPI This is a 67-year-old male with a history of prostate cancer with metastasis who was told his cancer is no longer treatable. Patient is here because of diffuse lower abdominal cramps with diarrhea for the past couple days. He says he has watery stool but no blood in his stool. No nausea vomiting no fever no back pain. No weakness. No chest pain or shortness of breath or dysuria or hematuria. ROS All systems reviewed and are negative except as per history of present illness. Medications Home Meds Active Scripts Metronidazole* (Flagyl*) 500 Mg Tablet, 500 MG PO TID for 5 Days, TAB Prov:RAH VILLASEÑORSTOLOS A. DO 07/22/18 Ciprofloxacin Hcl* (Ciprofloxacin Hcl*) 500 Mg Tablet, 500 MG PO BID for 5 Days, TAB Prov:RAH VILLASEÑORSTOLOS A. DO 07/22/18 Diphenoxylate HCl/Atropine (Lomotil 2.5-0.025 mg Tablet) 1 Each Tablet, 1 TAB PO QID PRN for DIARRHEA, #10 TAB Prov:MATA VILLASEÑORS A. DO 07/22/18 Reported Medications Tamsulosin Hcl* (Tamsulosin Hcl*) 0.4 Mg Cap.er.24h, 0.4 MG PO HS, CAP 05/28/18 Allergies Allergies: Coded Allergies: tetracycline (Unverified Allergy, Unknown, 07/22/18) PMhx/Soc History of Surgery: Yes (stent placement) Anesthesia Reaction: No Hx Neurological Disorder: No Hx Respiratory Disorders: No Hx Cardiac Disorders: No Hx Psychiatric Problems: No Hx Miscellaneous Medical Probl: Yes (metastatic prostate Ca) Hx Alcohol Use: Yes (stopped) Hx Substance Use: No Hx Tobacco Use: No Smoking Status: Current every day smoker FmHx Family History: No coronary disease Physical Exam Vitals Vital Signs Date Temp Pulse Resp B/P (MAP) Pulse Ox O2 O2 Flow FiO2 Time Delivery Rate 07/22/18 98.8 69 18 101/58 98 14:02 (72) Physical Exam Const: Well-developed, well-nourished Head: Atraumatic, normocephalic Eyes: Normal Conjunctiva, PERRLA, EOMI, normal sclera, no nystagmus ENT: Normal External Ears, Nose and Mouth, moist mucus membranes. Neck: Full range of motion. No meningismus, no lymphadenopathy. Resp: Clear to auscultation bilaterally, no wheezing, rhonchi, rales Cardio: Regular rate and rhythm, no murmurs, S1 S2 present Abd: Soft, mild tenderness to the lower abdomen non distended. Normal bowel sounds, no guarding or rebound, no pulsitile abdominal masses or bruits Skin: No petechiae or rashes, no ecchymosis , no maculopapular rash Back: No midline or flank tenderness Ext: No cyanosis, or edema, FROM x 4, normal inspection, neurovascularly intact x 4 Neur: Awake and alert, STR 5/5 x 4, sensation intact x 4, no focal findings, cerebellum intact Psych: Normal Mood and Affect Result Diagram: 07/22/18 1505 07/22/18 1505 Results 24 hrs Laboratory Tests Test 07/22/18 15:05 White Blood Count 11.1 10^3/ul Red Blood Count 3.97 10^6/ul Hemoglobin 10.8 g/dl Hematocrit 33.0 % Mean Corpuscular Volume 83.1 fl Mean Corpuscular Hemoglobin 27.2 pg Mean Corpuscular Hemoglobin Concent 32.7 g/dl Red Cell Distribution Width 17.5 % Platelet Count 684 10^3/UL Mean Platelet Volume 8.4 fl Immature Granulocytes % 0.800 % Neutrophils % 79.8 % Lymphocytes % 8.8 % Monocytes % 8.3 % Eosinophils % 2.2 % Basophils % 0.1 % Nucleated Red Blood Cells % 0.0 /100WBC Immature Granulocytes # 0.090 10^3/ul Neutrophils # 8.9 10^3/ul Lymphocytes # 1.0 10^3/ul Monocytes # 0.9 10^3/ul Eosinophils # 0.2 10^3/ul Basophils # 0.0 10^3/ul Nucleated Red Blood Cells # 0.0 10^3/ul Sodium Level 131 mmol/L Potassium Level 4.1 mmol/L Chloride Level 96 mmol/L Carbon Dioxide Level 21 mmol/L Anion Gap 14 Blood Urea Nitrogen 11 mg/dl Creatinine 0.61 mg/dl Est Glomerular Filtrat Rate mL/min > 60 mL/min Glucose Level 104 mg/dl Calcium Level 8.4 mg/dl Total Bilirubin 0.2 mg/dl Direct Bilirubin 0.00 mg/dl Indirect Bilirubin 0.2 mg/dl Aspartate Amino Transf (AST/SGOT) 20 IU/L Alanine Aminotransferase (ALT/SGPT) 16 IU/L Alkaline Phosphatase 125 IU/L Total Protein 6.6 g/dl Albumin 3.8 g/dl Globulin 2.80 g/dl Albumin/Globulin Ratio 1.35 Lipase 370 U/L Current Medications Medications Dose Sig/Anne Start Time Status Last (Trade) Ordered Route PRN Stop Time Admin Dose Reason Admin Sodium 1,000 ml @ Q1H STAT 07/22/18 DC 07/22/18 Chloride 1,000 mls/hr IV 15:27 07/22/18 15:43 16:26 1 mg ONCE STAT 07/22/18 DC 07/22/18 Hydromorphone IV 15:27 07/22/18 15:43 HCl 15:28 (Dilaudid) Ondansetron 4 mg ONCE STAT 07/22/18 DC 07/22/18 HCl (Zofran IV 15:27 07/22/18 15:43 Inj) 15:28 IV Flush 10 ml STK-MED 07/22/18 DC 07/22/18 (NS 10 ml) ONCE .ROUTE 16:00 07/22/18 16:40 16:01 Sodium 100 ml @ ud STK-MED 07/22/18 DC 07/22/18 Chloride ONCE .ROUTE 16:00 07/22/18 16:41 16:01 Iohexol 150 ml STK-MED 07/22/18 DC 07/22/18 (Omnipaque ONCE .ROUTE 16:00 07/22/18 16:41 300mg/ ml) 16:01 Procedures/MDM MR #: [id number] DOS: 07/22/18 1527 Ordering MD: ALYSA VILLASEÑOR DO Location: E/R Room/Bed: PROCEDURE: CT Abdomen and Pelvis With Intravenous Contrast CLINICAL INDICATION: Abdominal pain. TECHNIQUE: Axial computed tomography images of the abdomen and pelvis with intravenous contrast. Sagittal and coronal reformatted images were created and reviewed. CTDIvol (mGy) = 6.65; total DLP (mGy-cm) = 375.01. This CT exam was performed using one or more of the following dose reduction techniques: automated exposure control, adjustment of the mA and/or kV according to patient size, and/or use of iterative reconstruction technique. DICOM images are available. CONTRAST: 100 mL of Omnipaque-300 was administered intravenously. COMPARISON: 05/28/2018. FINDINGS: LUNG BASES: Unremarkable. No mass. No consolidation. ABDOMEN: LIVER: Unremarkable. No mass. GALLBLADDER AND BILE DUCTS: Unremarkable. No calcified stones. No ductal dilation. PANCREAS: Unremarkable. No mass. No ductal dilation. SPLEEN: Unremarkable. No splenomegaly. ADRENALS: Unremarkable. No mass. KIDNEYS AND URETERS: Left-sided ureteral stent, which appears appropriately positioned. There is residual mild left hydroureteronephrosis, despite the presence of the stent. No obstructing calculus. STOMACH AND BOWEL: Unremarkable. No obstruction. No mucosal thickening. PELVIS: APPENDIX: No findings to suggest acute appendicitis. BLADDER: Focal mural thickening of the left posterolateral urinary bladder wall in the area of the left UVJ. This may represent a neoplastic lesion. REPRODUCTIVE: Mildly enlarged prostate gland. ABDOMEN and PELVIS: INTRAPERITONEAL SPACE: Unremarkable. No free air. No significant fluid collection. BONES/JOINTS: Sclerotic changes noted in the spine and pelvis, suspicious for osteoblastic metastases. No acute fracture. No dislocation. SOFT TISSUES: Unremarkable. VASCULATURE: Unremarkable. LYMPH NODES: There is celiac and aortocaval adenopathy again noted. Mild mesenteric adenopathy. Bilateral iliac adenopathy. Left inguinal adenopathy. Ly mph nodes are largest in the left internal iliac region and in the aortocaval space. Left internal iliac node measures 6.0 cm in length. Aortocaval nodes measure up to 2.8 cm in length. IMPRESSION: 1. Sclerotic changes noted in the spine and pelvis, suspicious for osteoblastic metastases. This is not significantly changed from 05/28/2018. 2. Left-sided ureteral stent, which appears appropriately positioned. There is residual mild left hydroureteronephrosis, despite the presence of the stent. No obstructing calculus. This is unchanged. 3. Focal mural thickening of the left posterolateral urinary bladder wall in the area of the left UVJ. This may represent a neoplastic lesion. This is unchanged. 4. Abdominal, retroperitoneal, and pelvic adenopathy. This is not significantly changed from 05/28/2018. 5. Mildly enlarged prostate gland. This is unchanged. RPTAT: [facility] Rodney Esparza, Physician Package Sealer Machine Date Time Electronically viewed and signed by Rodney Esparza Physician Package Sealer Machine on 07/22/2018 17:15 C/ CC: ALYSA VILLASEÑOR DO [id number] CAT scan looks unremarkable and he has chronic changes. He likely has some bad food exposure or virus. Will discharge home with some Lomotil and Cipro and Flagyl Departure Diagnosis: Primary Impression: Diarrhea Diarrhea type: unspecified type Qualified Codes: R19.7 - Diarrhea, unspecified Additional Impression: Abdominal pain Abdominal location: lower abdomen, unspecified Qualified Codes: R10.30 - L ower abdominal pain, unspecified Condition: Stable Patient Instructions: Abdominal Pain, Treating Diarrhea Referrals: LIZZ ROSSI BASSAM K MD LEKKOS, APOSTOLOS A. DO July 22, 2018 17:29
[2018-07-22] MEDS ORDERED: LIDOCAINE/MYLANTA 40 ML BTL PO STA (17:30)
[2018-07-22 19:15] VITALS: BP 98/60; PULSE 88; RESP 18
== END 2018-07-22 19:15 | disposition home or self-care (01) ==
LOC: E/R 14:00
DX: R19.7 Diarrhea, unspecified (principal); F17.210 Nicotine dependence, cigarettes, uncomplicated; R10.30 Lower abdominal pain, unspecified; Z85.46 Personal history of malignant neoplasm of prostate; Z98.61 Coronary angioplasty status
CPT/HCPCS: 36415; 74177; 80053; 83690; 85025; 96361; 96374; 96375; 96376; 99285; J1170; J2405; J7030; Q9967

== ENCOUNTER 2018-09-15 16:20 | Inpatient (IN) | payer MEDICARE, OTHER ==
[~2018-09-15] VITALS: Ht 165.1 cm; Wt 72.0 kg
[~2018-09-15 16:20] MED LIST changes: +CIPR500T4 PO; +DIPH1TAB PO; +HYDR-3980 PO; +METR500T PO
--- NOTE | 2018-09-15 17:46 | ERD ---
ER Documentation Chief Complaint Chief Complaint Pt reports no eating x 10 days, weakness, dizziness Hx prostate CA wit mets HPI This is a 67-year-old man with a history of metastatic prostate carcinoma presenting with about 1 week of increasing weakness and dizziness, he states he has not been eating very well and feels dehydrated. He came here for evaluation and states he had a syncopal episode while in her bathroom. ROS All systems reviewed and are negative except as per history of present illness. Medications Home Meds Active Scripts Hydrocodone/Acetaminophen ([place] 10-325 Tablet) 1 Each Tablet, 1 TAB PO Q6H PRN for PAIN, #16 TAB Prov:RAH VILLASEÑORSTOLOS A. DO 07/22/18 Reported Medications Tamsulosin Hcl* (Tamsulosin Hcl*) 0.4 Mg Cap.er.24h, 0.4 MG PO HS, CAP 05/28/18 Discontinued Scripts Metronidazole* (Flagyl*) 500 Mg Tablet, 500 MG PO TID for 5 Days, TAB Prov:CRISTIANOSRAHSTOLOS A. DO 07/22/18 Ciprofloxacin Hcl* (Ciprofloxacin Hcl*) 500 Mg Tablet, 500 MG PO BID for 5 Days, TAB Prov:CRISTIANOSRAHSTOLOS A. DO 07/22/18 Diphenoxylate HCl/Atropine (Lomotil 2.5-0.025 mg Tablet) 1 Each Tablet, 1 TAB PO QID PRN for DIARRHEA, #10 TAB Prov:RAH VILLASEÑORSTOLOS A. DO 07/22/18 Allergies Allergies: Coded Allergies: tetracycline (Unverified Allergy, Unknown, 09/15/18) PMhx/Soc Metastatic prostate carcinoma, chronic recurrent pain History of Surgery: Yes (stent placement) Anesthesia Reaction: No Hx Neurological Disorder: No Hx Respiratory Disorders: No Hx Cardiac Disorders: No Hx Psychiatric Problems: No Hx Miscellaneous Medical Probl: Yes (metastatic prostate Ca) Hx Alcohol Use: Yes (QUIT) Hx Substance Use: No Hx Tobacco Use: No FmHx Family History: No diabetes Physical Exam Vitals Vital Signs Date Temp Pulse Resp B/P (MAP) Pulse Ox O2 O2 Flow FiO2 Time Delivery Rate 09/15/18 98.5 80 16 118/64 95 16:32 (82) Physical Exam GENERAL: Well-developed, elderly, appears dehydrated, afebrile HEENT: Dry mucous membranes, pale conjunctive a, no cervical spine tenderness or step-off deformities, no goiter, no jaundice or icterus NEURO: Alert and oriented 3, cranial nerves II through XII intact bilaterally, pupils equal round reactive to light, no focal deficits or facial asymmetry, sensation intact distally Strength 5/5 in upper and lower extremities bilaterally CARDIAC: Regular rate and rhythm, no murmurs rubs or gallops LUNGS: Clear bilaterally no wheezing crackles or stridor ABDOMEN: Soft nontender, no guarding, no rigidity, no rebound, no psoas sign no obturator sign. SKIN: Warm and dry to touch, no abrasions, contusions, or hematomas, no lacerations, no ecchymosis, no target lesions, and without ulcers EXTREMITIES: No clubbing cyanosis or edema, calves are bilaterally symmetrical, no Homans sign, no popliteal cord sign. Distal pulses equal and bilateral Result Diagram: 09/15/18181109/15/181811 Results 24 hrs Laboratory Tests Test 09/15/18 18:12 White Blood Count 6.9 10^3/ul Red Blood Count 3.29 10^6/ul Hemoglobin 8.1 g/dl Hematocrit 25.3 % Mean Corpuscular Volume 76.9 fl Mean Corpuscular Hemoglobin 24.6 pg Mean Corpuscular Hemoglobin Concent 32.0 g/dl Red Cell Distribution Width 19.0 % Platelet Count 572 10^3/UL Mean Platelet Volume 8.5 fl Immature Granulocytes % 0.400 % Neutrophils % 76.1 % Lymphocytes % 12.4 % Monocytes % 9.0 % Eosinophils % 1.5 % Basophils % 0.6 % Nucleated Red Blood Cells % 0.0 /100WBC Immature Granulocytes # 0.030 10^3/ul Neutrophils # 5.2 10^3/ul Lymphocytes # 0.9 10^3/ul Monocytes # 0.6 10^3/ul Eosinophils # 0.1 10^3/ul Basophils # 0.0 10^3/ul Nucleated Red Blood Cells # 0.0 10^3/ul Sodium Level 135 mmol/L Potassium Level Pending Chloride Level 102 mmol/L Carbon Dioxide Level 23 mmol/L Anion Gap 10 Blood Urea Nitrogen 7 mg/dl Creatinine 0.81 mg/dl Est Glomerular Filtrat Rate mL/min > 60 mL/min Glucose Level 93 mg/dl Calcium Level 8.3 mg/dl Total Bilirubin 0.3 mg/dl Direct Bilirubin 0.00 mg/dl Indirect Bilirubin 0.3 mg/dl Aspartate Amino Transf (AST/SGOT) 17 IU/L Alanine Aminotransferase (ALT/SGPT) 9 IU/L Alkaline Phosphatase 220 IU/L Troponin I < 0.012 ng/ml Total Protein 6.1 g/dl Albumin 3.0 g/dl Globulin 3.10 g/dl Albumin/Globulin Ratio 0.96 Lipase 18 U/L Current Medications Medications Dose Sig/Anne Start Time Status Last (Trade) Ordered Route PRN Stop Time Admin Dose Reason Admin Lactated 1,000 ml @ Q1H STAT 09/15/18 DC 09/15/18 Ringer's 1,000 mls/hr IV 17:50 19:00 09/15/18 18:49 1,000 ml @ Q10H IV 09/15/18 09/15/18 Dextrose/Sodi 100 mls/hr 19:20 21:22 um Chloride IV Flush 3 ml PER 09/15/18 (NS 3 ml) PROTOCOL IV 19:30 Ondansetron 4 mg Q6H PRN 09/15/18 09/15/18 HCl (Zofran IV 19:30 21:20 Inj) NAUSEA/VOMITI NG 650 mg Q6H PRN 09/15/18 Acetaminophen PO .PAIN 1-3 19:30 (Tylenol OR TEMP Tab) 1 tab Q6H PRN 09/15/18 Acetaminophen PO .PAIN 4-6 19:30 / Hydrocodone Bitart ([place] (5/325)) 2 tab Q6H PRN 09/15/18 09/15/18 Acetaminophen PO .PAIN 19:30 21:25 / 7-10 Hydrocodone Bitart ([place] (5/325)) Docusate 100 mg Q12H PRN 09/15/18 Sodium PO 19:30 (Colace) .CONSTIPATION Magnesium 30 ml DAILY PRN 09/15/18 Hydroxide PO 19:30 (Milk Of Mag) .CONSTIPATION Procedures/MDM IV line was established patient was placed on health promotion manager rhythm strip revealed a sinus rhythm at about 80 bpm with upright P and T waves. Patient was afebrile EKG performed, read by me revealed a normal sinus rhythm at 82 bpm, normal axis, narrow QRS complex, no concerning ST elevations or depressions noted I administered 1 L LR IV for dehydration 1 view chest x-ray performed, read by me revealed mild congestion bilaterally, no acute infiltrates, no pneumothorax. CBC reveals anemia with a hemoglobin of 8.1, electrolytes are unremarkable, liver function tests unremarkable, troponin negative Departure Diagnosis: Primary Impression: Acute dehydration Additional Impressions: Prostate cancer metastatic to bone Failure to thrive Failure to thrive age range: in adult Qualified Codes: R62.7 - Adult failure to thrive Symptomatic anemia Condition: Fair ROGER ALMENDAREZ MD Sep 15, 2018 17:46
[2018-09-15] MEDS ORDERED: LACTATED RINGER'S 1,000 ML IV STA (17:50)
[2018-09-15] MEDS ORDERED: ACETAMINOPHEN 325 MG TAB PO PRN (19:30)
[2018-09-15] MEDS ORDERED: HYDROCODONE/APAP (5/325) TAB PO PRN (19:30)
[2018-09-15] MEDS ORDERED: MAGNESIUM HYDROXIDE 30ML CUP PO PRN (19:30)
[2018-09-15] MEDS ORDERED: DOCUSATE SODIUM 100 MG CAP PO PRN (19:30)
[2018-09-15] MEDS ORDERED: NACL 0.9% 3 ML SYG IV SCH (19:30)
--- NOTE | 2018-09-15 20:22 | HP ---
Date/Time of Note Date/Time of Note DATE: 09/15/18 TIME: 20:22 Assessment/Plan VTE Prophylaxis Pharmacological prophylaxis: LMWH Lines/Catheters IV [facility]from [facility]): Saline Lock Assessment/Plan Hospital Course This is a 67-year-old male being admitted to the telemetry floor for: #1 syncope: Orthostatic versus neurocardiogenic versus cardiogenic: I suspect this is likely secondary to orthostatics. Patient has very poor p.o. intake as well as nausea and vomiting. Does appear intravascularly depleted. Will hydrate the patient with normal saline. Will check orthostatic, will check an echocardiogram. Check carotids. #2 Nausea and vomitting : Patient does appear to be dehydrated, he is unable to keep most of his p.o. intake down. He has had decreased appetite. This likely progression of his metastatic disease. We will hydrate the patient with normal saline. I did give a dose of Marinol as a trial we will see how he responds to this. He also does report abdominal pain. I will order a CT of the abdomen pelvis with p.o. and IV contrast contrast I told him that if he cannot tolerate the p.o. contrast is okay, to assess for possible obstruction. #3 prostate cancer with metastasis: Patient does have previous MRI studies that show metastatic disease to the bone. He is no longer on chemotherapy or any sort of treatment for his cancer. His oncologist at the [facility]. He was told that unfortunately there are not further treatments that would be beneficial to him. I have discussed hospice with him today and he is open to an evaluation for this. I will place a social work and case management consult for the #4 bilateral lower extremity edema: Secondary to underlying tumor burden from cancer. At the current time he does appear dehydrated so we will hydrate him and then provide Lasix. I will also check echocardiogram in the setting of syncope as per #1. #5 cancer related pain: We will provide [place] and Dilaudid for breakthrough pain, consult pain management #6 Microcytic anemia: Likely related to underlying cancer. Will check stool occult blood, consider iron supplementation #7 ambulatory dysfunction: PT evaluation, this is likely been affected by his metastatic disease to bone. #8 DVT GI prophylaxis: Lovenox, no GI prophylaxis indicated Further treatment strategy will be implemented as per the clinical course. CODE STATUS: I did have a lengthy discussion with the patient regarding his prognosis. Given the fact that he is no longer candidate for any further chemotherapy or other cancer therapy I did discuss with him regarding changing his CODE STATUS: Patient does report that he does not want to be kept alive on a machine. He does understand the severity of his disease. He is agreeable at the current time to be DNR/DNI. He is also agreeable to speak with hospice, consult will be placed. Result Diagram: 09/15/18 1812 09/15/18 1812 Results 24hrs Laboratory Tests Test 09/15/18 18:12 White Blood Count 6.9 # Red Blood Count 3.29 L Hemoglobin 8.1 #L Hematocrit 25.3 #L Mean Corpuscular Volume 76.9 L Mean Corpuscular Hemoglobin 24.6 L Mean Corpuscular Hemoglobin Concent 32.0 Red Cell Distribution Width 19.0 H Platelet Count 572 H Mean Platelet Volume 8.5 Immature Granulocytes % 0.400 Neutrophils % 76.1 Lymphocytes % 12.4 L Monocytes % 9.0 Eosinophils % 1.5 Basophils % 0.6 Nucleated Red Blood Cells % 0.0 Immature Granulocytes # 0.030 Neutrophils # 5.2 Lymphocytes # 0.9 Monocytes # 0.6 Eosinophils # 0.1 Basophils # 0.0 Nucleated Red Blood Cells # 0.0 Sodium Level 135 Potassium Level Pending Chloride Level 102 Carbon Dioxide Level 23 Anion Gap 10 Blood Urea Nitrogen 7 Creatinine 0.81 Est Glomerular Filtrat Rate mL/min > 60 Glucose Level 93 Calcium Level 8.3 L Total Bilirubin 0.3 Direct Bilirubin 0.00 Indirect Bilirubin 0.3 Aspartate Amino Transf (AST/SGOT) 17 Alanine Aminotransferase (ALT/SGPT) 9 L Alkaline Phosphatase 220 H Troponin I < 0.012 Total Protein 6.1 Albumin 3.0 L Globulin 3.10 Albumin/Globulin Ratio 0.96 Lipase 18 L HPI/ROS Admit Date/Time Admit Date/Time Hx of Present Illness Chief complaint: Poor p.o. intake, unable to keep food down, increased bilateral extremity edema, syncopal episode This is a 67-year-old male with a history of metastatic prostate carcinoma who presented to the emergency department complaining of 1 week of increasing weakness and dizziness. Patient reports that he is no longer on chemotherapy as he has been told by his oncologist at all of you that there are not any more treatments they would be beneficial for him unfortunately. He states that he has been unable to keep any fluids down, he is able to keep some liquids down. He reports that he has not had a bowel movement in the last few days as well. He does report increased swelling in his bilateral lower extremities. He feels weak and tired. He currently lives with his mother. He has having difficulty ambulating as well. He states that when he was in the emergency department he did fall there. Pelvic x-ray that was performed in emergency department did not show any signs of acute fracture. He also reports that his left leg has been weak was told by his oncologist that this likely secondary to his metastatic disease. Allergies: Tetracycline Medications: Hydrocodone 10-325 mg p.o. every 6 hours as needed, Flomax ROS Const: As per HPI Eyes : No pain discharge or redness or change in visual acuity ENT: No pain, sore throat, congestion, congestion, dysphagia or discharge Respiratory: No shortness of breath, cough, sputum, wheezing, or pleuritic pain Cardiovascular: No chest pain, palpitation, PND, or edema GI : As per HPI Genitourinary: No dysuria, hematuria, flank pain , discharge or CVA tenderness Musculoskeletal: As per HPI Skin: No rash, bruising or hives Neuro: No headache, dizziness, syncope, seizure, focal weakness Endocrine: No polyuria, polydipsia, temperature intolerance Psych: No hallucination, depression, anxiety or suicidal ideation PMH/Family/Social Past Medical History Prostate cancer metastatic, no longer on chemo Medications Current Medications Tamsulosin HCl (Flomax) 0.4 mg HS PO ; Start 09/15/18 at 21:00 Dextrose/Sodium Chloride 1,000 ml @ 100 mls/hr Q10H IV ; Start 09/15/18 at 19:20 IV Flush (NS 3 ml) 3 ml PER PROTOCOL IV ; Start 09/15/18 at 19:30 Ondansetron HCl (Zofran Inj) 4 mg Q6H PRN IV NAUSEA/VOMITING; Start 09/15/18 at 19:30 Acetaminophen (Tylenol Tab) 650 mg Q6H PRN PO .PAIN 1-3 OR TEMP; Start 09/15/18 at 19:30 Acetaminophen/ Hydrocodone Bitart ([place] (5/325)) 1 tab Q6H PRN PO .PAIN 4-6; Start 09/15/18 at 19:30 Acetaminophen/ Hydrocodone Bitart ([place] (5/325)) 2 tab Q6H PRN PO .PAIN 7-10; Start 09/15/18 at 19:30 Docusate Sodium (Colace) 100 mg Q12H PRN PO .CONSTIPATION; Start 09/15/18 at 19:30 Magnesium Hydroxide (Milk Of Mag) 30 ml DAILY PRN PO .CONSTIPATION; Start 09/15/18 at 19:30 Pantoprazole (Protonix Tab) 40 mg DAILY@06 PO ; Start 09/16/18 at 06:00 Heparin Sodium (Porcine) (Heparin (5000 Units/1ml)) 5,000 unit Q8 SC ; Start 09/15/18 at 22:00 Coded Allergies: tetracycline (Unverified Allergy, Unknown, 09/15/18) Past Surgical History Bladder stone removal L ureteral stent placement. Past Surgical Hx: other Family History Significant Family History: no pertinent family hx Social History Alcohol Use: none Smoking Status: Never smoker Drug Use: none Exam/Review of Systems Vital Signs Vitals Vital Signs Date Temp Pulse Resp B/P (MAP) Pulse Ox O2 O2 Flow FiO2 Time Delivery Rate 09/15/18 80 14 128/80 96 Room Air 20:18 (96) 09/15/18 98.5 16:32 Exam Exam General: Patient is currently lying in bed he is pleasant, he does appear to be in pain. HEENT: Atraumatic, normocephalic. The pupils are equal, round and reactive. Extraocular motor are intact, mucous membranes dry Neck: Supple with full range of motion. No rigidity or meningismus Chest: Nontender Lungs: Clear to auscultation bilaterally no crackles rales or wheezing Heart: Normal S1-S2, Regular rhythm and rate. No murmur, S3, or S4 Abdomen: Soft , mild subcutaneous edema of the abdomen, nondistended , bowel sounds are present. No guarding no rebound tenderness , No masses or organomegaly. No costovertebral temporal angle mass Extremities: Bilateral 2+ pitting edema of the lower extremities, scrotal edema Neurologic: Normal mental status, speech normal, gait not assessed secondary to pain and weakness Additional Comments PROCEDURE: One view chest radiograph. CLINICAL INDICATION: Abdominal pain TECHNIQUE: An AP view of the chest was obtained. COMPARISON: CR CHEST 01/26/2015 FINDINGS: Mediastinum: There is calcification of the wall of the thoracic aorta. Heart size: Mildly enlarged Pulmonary vasculature: Engorged. Lungs: Interstitial prominence new since the prior study . No focal infiltrates Costophrenic sulci: Clear. Bony structures: Grossly unremarkable for age. IMPRESSION: 1. Atherosclerosis of the thoracic aorta. 2. Findings compatible with congestive failure new since the prior examination. RPTAT:AAJJ Ghada Bourgeois Physician Date Time Electronically viewed and signed by Ghada Bourgeois Physician on 09/15/2018 19:28 GW/ CC: ROGER ALMENDAREZ MD [id number] JACKIE VUONG Sep 15, 2018 20:22
[2018-09-15 21:00] VITALS: BP 139/81; PULSE 88; Ht 165.1 cm; Wt 72.0 kg
[2018-09-15] MEDS: ONDANSETRON 4 MG INJ IV PRN (21:20)
[2018-09-15] MEDS: TAMSULOSIN (SR) 0.4 MG CAP PO SCH (21:22)
[2018-09-15] MEDS: DEXTROSE 5%-0.45% NACL 1,000 ML IV SCH (21:22)
[2018-09-15] MEDS: HYDROCODONE/APAP (5/325) TAB PO PRN (21:25)
[2018-09-15] MEDS: HEPARIN 5,000 UNIT/1 ML VIAL SC SCH (21:34)
[2018-09-15] MEDS ORDERED: DRONABINOL 2.5 MG CAP PO SCH (23:00)
[2018-09-15 23:33] VITALS: BP 127/77; PULSE 82; RESP 18
[2018-09-16 03:34] VITALS: BP 108/70; PULSE 82; RESP 18
[2018-09-16] MEDS: DEXTROSE 5%-0.45% NACL 1,000 ML IV SCH ×2 (05:20→10:42)
[2018-09-16] MEDS: PANTOPRAZOLE (EC) 40 MG TAB PO SCH (05:54)
[2018-09-16] MEDS ORDERED: IOHEXOL 14.3 MG(I)/ML (ADULT) BTL PO ONE (06:00)
[2018-09-16] MEDS: ONDANSETRON 4 MG INJ IV PRN ×2 (06:26→20:29)
[2018-09-16] MEDS: HEPARIN 5,000 UNIT/1 ML VIAL SC SCH ×3 (06:50→20:33)
[2018-09-16 07:49] VITALS: BP 126/74; PULSE 90; RESP 18
[2018-09-16] MEDS: POLYETHYLENE GLYCOL 17 GM PACKET PO SCH (09:00)
[2018-09-16] MEDS: DOCUSATE SODIUM 100 MG CAP PO SCH ×2 (09:00→21:00)
[2018-09-16] MEDS ORDERED: BISACODYL 10 MG SUPP PR PRN (11:30)
--- NOTE | 2018-09-16 11:34 | PN ---
Date/Time of Note Date/Time of Note DATE: 09/16/18 TIME: 11:27 Assessment/Plan VTE Prophylaxis Risk score (from Nsg)>0 risk: 3 SCD applied (from Nsg): No SCD contraindicated: other (no) Pharmacological prophylaxis: LMWH Lines/Catheters IV Catheter Type (from Nrsg): Peripheral IV Assessment/Plan Assessment/Plan 67 yo man with prostate cancer with bony mets no longer on chemotherapy presents with acute ileus and syncope. #Ileus - Nausea, vomiting, PO intolerance - Constipation. Passing gas. - Clinically not obstructed. - Pending CT abd/pel to look for transition point - PO miralax, [place] bisocodyl. - IV fluids until reliable taking PO. # syncope: - Likely orthostatic due to volume loss from vomiting and poor PO intake. # prostate cancer with metastasis: - Patient does have previous MRI studies that show metastatic disease to the bone. - His oncologist at the [facility]. - He is no longer on chemotherapy or any sort of treatment for his cancer. - He was told that unfortunately there are not further treatments that would be beneficial to him. - He is open to hospice. With his ECOG 4 functional status and metastatic cancer I predict a <6 month prognosis for him. - Consulted Dr. Bowens - Social work consult. # bilateral lower extremity edema: - Secondary to underlying tumor burden from cancer. # cancer related pain: We will provide [place] and Dilaudid for breakthrough pain, consult pain management # Microcytic anemia: Likely related to underlying cancer. # DVT GI prophylaxis: Lovenox, no GI prophylaxis indicated CODE STATUS: DNR/DNI per discussion on admission and today. Result Diagram: 09/16/18 0718 09/16/18 0718 Subjective 24 Hr Interval Summary Free Text/Dictation No acute overnight events. Patient continues to have nausea, vomiting up most of PO intake. Constipation, had firm bowel movements yesterday and today. Passing gas. Exam/Review of Systems Exam Vitals Vital Signs Date Temp Pulse Resp B/P (MAP) Pulse Ox O2 O2 Flow FiO2 Time Delivery Rate 09/16/18 98.0 90 18 126/74 98 Room Air 07:49 (91) Intake and Output 09/15/18 09/15/18 09/16/18 1414:59 22:59 06:59 IntakeIntake Total 40 ml OutputOutput Total 350 ml BalanceBalance -310 ml Exam General: Fatigued appearing man lying in bed in some discomfort. Dry heaving. HEENT: Atraumatic, normocephalic. The pupils are equal, round and reactive. Extraocular motor are intact, mucous membranes dry Neck: Supple with full range of motion. No rigidity or meningismus Chest: Nontender Lungs: Clear to auscultation bilaterally no crackles rales or wheezing Heart: Normal S1-S2, Regular rhythm and rate. No murmur, S3, or S4 Abdomen: Soft , mild subcutaneous edema of the abdomen, nondistended , bowel sounds are present. Mild guarding of the lower abdomen. Extremities: Bilateral 2+ pitting edema of the lower extremities, scrotal edema Results Results 24hrs Laboratory Tests Test 09/15/18 18:12 09/16/18 03:50 09/16/18 07:18 White Blood Count 6.9 # 6.0 Red Blood Count 3.29 L 2.85 L Hemoglobin 8.1 #L 7.2 L Hematocrit 25.3 #L 21.7 L Mean Corpuscular Volume 76.9 L 76.1 L Mean Corpuscular Hemoglobin 24.6 L 25.3 L Mean Corpuscular 32.0 33.2 Hemoglobin Concent Red Cell Distribution Width 19.0 H 18.9 H Platelet Count 572 H 633 H Mean Platelet Volume 8.5 9.6 Immature Granulocytes % 0.400 0.300 Neutrophils % 76.1 71.7 Lymphocytes % 12.4 L 14.4 L Monocytes % 9.0 10.1 Eosinophils % 1.5 2.8 Basophils % 0.6 0.7 Nucleated Red Blood Cells % 0.0 0.0 Immature Granulocytes # 0.030 0.020 Neutrophils # 5.2 4.3 Lymphocytes # 0.9 0.9 Monocytes # 0.6 0.6 Eosinophils # 0.1 0.2 Basophils # 0.0 0.0 Nucleated Red Blood Cells # 0.0 0.0 Sodium Level 135 135 Potassium Level Pending 3.2 L Chloride Level 102 104 Carbon Dioxide Level 23 24 Anion Gap 10 7 Blood Urea Nitrogen 7 6 L Creatinine 0.81 0.70 Est Glomerular Filtrat > 60 > 60 Rate mL/min Glucose Level 93 89 Calcium Level 8.3 L 7.8 L Total Bilirubin 0.3 0.3 Direct Bilirubin 0.00 0.00 Indirect Bilirubin 0.3 0.3 Aspartate Amino 17 17 Transf (AST/SGOT) Alanine 9 L 17 Aminotransferase (ALT/SGPT) Alkaline Phosphatase 220 H 178 H Troponin I < 0.012 Total Protein 6.1 5.2 L Albumin 3.0 L 2.5 L Globulin 3.10 2.70 Albumin/Globulin Ratio 0.96 0.92 Lipase 18 L Urine Color YELLOW Urine Clarity SLIGHTLY CLOUDY A Urine pH 6.0 Urine Specific [place] 1.009 Urine Ketones NEGATIVE Urine Nitrite NEGATIVE Urine Bilirubin NEGATIVE Urine Urobilinogen NEGATIVE Urine Leukocyte Esterase NEGATIVE Urine Microscopic RBC 13 H Urine Microscopic WBC 5 Urine Hemoglobin 1+ H Urine Glucose NEGATIVE Urine Total Protein NEGATIVE Magnesium Level 1.9 Iron Level < 10 L Total Iron Binding Capacity 176 L Percent Iron Saturation Ferritin 132.0 B-Type Natriuretic Peptide 1660 H Medications Medication Current Medications Tamsulosin HCl (Flomax) 0.4 mg HS PO Last administered on 09/15/18 21:22; Admin Dose 0.4 MG; Start 09/15/18 at 21:00 Dextrose/Sodium Chloride 1,000 ml @ 100 mls/hr Q10H IV Last administered on 09/16/18 10:42; Admin Dose 100 MLS/HR; Start 09/15/18 at 19:20 IV Flush (NS 3 ml) 3 ml PER PROTOCOL IV ; Start 09/15/18 at 19:30 Ondansetron HCl (Zofran Inj) 4 mg Q6H PRN IV NAUSEA/VOMITING Last administered on 09/16/18 06:26; Admin Dose 4 MG; Start 09/15/18 at 19:30 Acetaminophen (Tylenol Tab) 650 mg Q6H PRN PO .PAIN 1-3 OR TEMP; Start 09/15/18 at 19:30 Acetaminophen/ Hydrocodone Bitart ([place] (5/325)) 1 tab Q6H PRN PO .PAIN 4-6; Start 09/15/18 at 19:30 Acetaminophen/ Hydrocodone Bitart ([place] (5/325)) 2 tab Q6H PRN PO .PAIN 7-10 Last administered on 09/15/18at 21:25; Admin Dose 2 TAB; Start 09/15/18 at 19:30 Docusate Sodium (Colace) 100 mg Q12H PRN PO .CONSTIPATION Last administered on 09/16/18 00:55; Admin Dose 100 MG; Start 09/15/18 at 19:30 Magnesium Hydroxide (Milk Of Mag) 30 ml DAILY PRN PO .CONSTIPATION; Start 09/15/18 at 19:30 Pantoprazole (Protonix Tab) 40 mg DAILY@06 PO Last administered on 09/16/18at 05:54; Admin Dose 40 MG; Start 09/16/18 at 06:00 Heparin Sodium (Porcine) (Heparin (5000 Units/1ml)) 5,000 unit Q8 SC Last administered on 09/16/18at 06:50; Admin Dose 5,000 UNIT; Start 09/15/18 at 22:00 Docusate Sodium (Colace) 100 mg BID PO ; Start 09/16/18 at 09:00 Polyethylene Glycol (Miralax) 17 gm DAILY PO ; Start 09/16/18 at 09:00 Hydromorphone HCl (Dilaudid) 1 mg Q4H PRN IV SEVERE PAIN LEVEL 7-10; Start 09/16/18 at 06:30 LEORA DOMÍNGUEZ MD Sep 16, 2018 11:34
[2018-09-16 12:00] VITALS: BP 124/69; PULSE 83; RESP 18
[2018-09-16] MEDS ORDERED: IOHEXOL 300MG/ML 150 ML BTL ONE (12:15)
[2018-09-16] MEDS ORDERED: SOD CHLORIDE 0.9% 100 ML ONE (12:15)
[2018-09-16] MEDS: HYDROmorphONE 1 MG/ML SYG IV PRN ×2 (14:56→20:22)
[2018-09-16 15:52] VITALS: BP 118/71; PULSE 79; RESP 16
[2018-09-16 19:52] VITALS: BP 115/71; PULSE 87; RESP 18
[2018-09-16] MEDS: TAMSULOSIN (SR) 0.4 MG CAP PO SCH (21:00)
[2018-09-16] MEDS ORDERED: POTASSIUM CHLORIDE 100 ML IVPB ONE (22:00)
[2018-09-16] MEDS ORDERED: FUROSEMIDE 40 MG INJ IV ONE (22:30)
[2018-09-17] VITALS: BP 122/76; PULSE 79; RESP 20
[2018-09-17] MEDS: DEXTROSE 5%-0.45% NACL 1,000 ML IV SCH ×3 (01:20→18:21)
[2018-09-17] MEDS: HYDROmorphONE 1 MG/ML SYG IV PRN (01:56)
[2018-09-17] MEDS ORDERED: POTASSIUM CHLORIDE 100 ML IVPB ONE (02:30)
[2018-09-17 04:18] VITALS: BP 115/76; PULSE 72; RESP 20
[2018-09-17] MEDS: ONDANSETRON 4 MG INJ IV PRN ×3 (05:30→22:41)
[2018-09-17] MEDS: PANTOPRAZOLE (EC) 40 MG TAB PO SCH (06:24)
[2018-09-17] MEDS: HEPARIN 5,000 UNIT/1 ML VIAL SC SCH ×3 (06:29→21:11)
[2018-09-17 07:20] VITALS: BP 124/75; PULSE 87; RESP 18
[2018-09-17 12:53] VITALS: BP 127/73; PULSE 81; RESP 18
[2018-09-17] MEDS: POLYETHYLENE GLYCOL 17 GM PACKET PO SCH (13:50)
[2018-09-17] MEDS: DOCUSATE SODIUM 100 MG CAP PO SCH ×2 (13:50→21:04)
--- NOTE | 2018-09-17 14:13 | PN ---
Date/Time of Note Date/Time of Note DATE: 09/17/18 TIME: 14:10 Assessment/Plan VTE Prophylaxis Risk score (from Nsg)>0 risk: 2 SCD applied (from Nsg): No SCD contraindicated: other (no) Pharmacological prophylaxis: heparin Lines/Catheters IV Catheter Type (from Nrsg): Saline Lock Urinary Cath still in place: No Assessment/Plan Assessment/Plan 67 yo man with prostate cancer with bony mets no longer on chemotherapy presents with acute ileus and syncope. #Ileus - Now having bowel movements. - CT abdomen no obstruction. - Also with anorexia. Will add Boost to diet. - Miralax, biscodyl as needed. # syncope: - Likely orthostatic due to volume loss from vomiting and poor PO intake. # prostate cancer with metastasis: - Patient does have previous MRI studies that show metastatic disease to the bone. - His oncologist at the [facility]. - He is no longer on chemotherapy or any sort of treatment for his cancer. - He was told that unfortunately there are not further treatments that would be beneficial to him. - He is open to hospice. With his ECOG 4 functional status and metastatic cancer I predict a <6 month prognosis for him. - Consulted Dr. Bowens - Social work consult. # bilateral lower extremity edema: - Secondary to underlying tumor burden from cancer. # cancer related pain: We will provide [place] and Dilaudid for breakthrough pain, consult pain management # Microcytic anemia: Likely related to underlying cancer. # DVT GI prophylaxis: Lovenox, no GI prophylaxis indicated CODE STATUS: DNR/DNI per discussion on admission and today. Plan for hospice. Result Diagram: 09/16/18 0718 09/16/18 0718 Subjective 24 Hr Interval Summary Free Text/Dictation No acute overnight events. Patient having multiple watery bowel movements. Continues to have poor appetite. Exam/Review of Systems Exam Vitals Vital Signs Date Temp Pulse Resp B/P (MAP) Pulse Ox O2 O2 Flow FiO2 Time Delivery Rate 09/17/18 98.0 81 18 127/73 98 12:53 (91) 09/16/18 Room Air 15:52 Intake and Output 09/16/18 09/16/18 09/17/18 1515:00 23:00 07:00 IntakeIntake Total 1100 ml 1350 ml 100 ml OutputOutput Total 1201 ml 2225 ml 2350 ml BalanceBalance -101 ml -875 ml -2250 ml Exam General: Fatigued appearing man lying in bed in no discomfort. HEENT: Atraumatic, normocephalic. The pupils are equal, round and reactive. Extraocular motor are intact, mucous membranes dry Neck: Supple with full range of motion. No rigidity or meningismus Chest: Nontender Lungs: Clear to auscultation bilaterally no crackles rales or wheezing Heart: Normal S1-S2, Regular rhythm and rate. No murmur, S3, or S4 Abdomen: Soft , mild subcutaneous edema of the abdomen, nondistended , bowel sounds are present. Mild guarding of the lower abdomen. Extremities: Bilateral 2+ pitting edema of the lower extremities, scrotal edema Medications Medication Current Medications Tamsulosin HCl (Flomax) 0.4 mg HS PO Last administered on 09/15/18 21:22; Admin Dose 0.4 MG; Start 09/15/18 at 21:00 Dextrose/Sodium Chloride 1,000 ml @ 100 mls/hr Q10H IV Last administered on 09/17/18 05:32; Admin Dose 100 MLS/HR; Start 09/15/18 at 19:20 IV Flush (NS 3 ml) 3 ml PER PROTOCOL IV ; Start 09/15/18 at 19:30 Ondansetron HCl (Zofran Inj) 4 mg Q6H PRN IV NAUSEA/VOMITING Last administered on 09/17/18at 13:45; Admin Dose 4 MG; Start 09/15/18 at 19:30 Acetaminophen (Tylenol Tab) 650 mg Q6H PRN PO .PAIN 1-3 OR TEMP; Start 09/15/18 at 19:30 Acetaminophen/ Hydrocodone Bitart ([place] (5/325)) 1 tab Q6H PRN PO .PAIN 4-6; Start 09/15/18 at 19:30 Acetaminophen/ Hydrocodone Bitart ([place] (5/325)) 2 tab Q6H PRN PO .PAIN 7-10 Last administered on 09/15/18at 21:25; Admin Dose 2 TAB; Start 09/15/18 at 19:30 Docusate Sodium (Colace) 100 mg Q12H PRN PO .CONSTIPATION Last administered on 09/16/18 00:55; Admin Dose 100 MG; Start 09/15/18 at 19:30 Magnesium Hydroxide (Milk Of Mag) 30 ml DAILY PRN PO .CONSTIPATION; Start 09/15/18 at 19:30 Pantoprazole (Protonix Tab) 40 mg DAILY@06 PO Last administered on 09/17/18at 06:24; Admin Dose 40 MG; Start 09/16/18 at 06:00 Heparin Sodium (Porcine) (Heparin (5000 Units/1ml)) 5,000 unit Q8 SC Last administered on 09/17/18at 13:59; Admin Dose 5,000 UNIT; Start 09/15/18 at 22:00 Docusate Sodium (Colace) 100 mg BID PO Last administered on 09/17/18 13:50; Admin Dose 100 MG; Start 09/16/18 at 09:00 Polyethylene Glycol (Miralax) 17 gm DAILY PO Last administered on 09/17/18at 13:50; Admin Dose 17 GM; Start 09/16/18 at 09:00 Hydromorphone HCl (Dilaudid) 1 mg Q4H PRN IV SEVERE PAIN LEVEL 7-10 Last administered on 09/17/18at 01:56; Admin Dose 1 MG; Start 09/16/18 at 06:30 Bisacodyl (Dulcolax Supp) 10 mg DAILY PRN RI CONSTIPATION; Start 09/16/18 at 11:30 LEORA DOMÍNGUEZ MD Sep 17, 2018 14:13
--- NOTE | 2018-09-17 16:48 | RADRPT ---
Echocardiogram Report [facility] [id number] : 1950 (67y 10m)Study Date: 09/16/2018 1:05:11 PM Gender: Jorgecession #: [id number] Tech: Jani Solano [facility] Location: [facility] Ref.Physician: JACKIE VUONG Height(Cm): BSA: Weight(Kg): Quality: AdequateOrder Physician: JACKIE VUONG Account #: Procedures: Echocardiographic Report: Transthoracic echocardiogram with complete 2D, M-Mode, and doppler examination. Indications: Abnormal chest xray. Measurements: 2D/M Mode Doppler Measurement Value Normal Range Measurement Value Normal Range LVIDd 2D 4.3 [ 4.2 - 5.8 ] cm AV Peak Mitesh 1.5 [ 100.0 - 170.0 ] cm/se c LVIDs 2D 2.8 [ 2.5 - 4.0 ] cm AV Peak PG 10.0 [ 2.0 - 9.0 ] mmHg LVPWd 2D 0.8 [ 0.6 - 1.0 ] cm LVOT Peak Mitesh 1.2 [ 70.0 - 110.0 ] cm/sec IVSd 2D 0.9 [ 0.6 - 1.0 ] cm LVOT Peak PG 6.0 [ 2.0 - 6.0 ] mmHg AoR Diam 2D 3.0 [ 2.6 - 3.4 ] cm MV E Peak Mitesh 1.0 [ 60.0 - 130.0 ] cm/sec EDV 2D 83.5 [ 62.0 - 150.0 ] ml MV A Peak Mitesh 0.9 [ 100.0 - 120.0 ] cm/se c ESV 2D 28.8 [ 21.0 - 61.0 ] ml MV E/A 1.2 [ 0.8 - 1.5 ] ratio EF 2D 65.5 [ 52.0 - 72.0 ] percent MV PHT 56.0 [ 20.0 - 100.0 ] msec LA Dimen 2D 2.8 [ 3.0 - 4.0 ] cm MV Decel Time 193 [ 104 - 258 ] msec MV Decel Whiteside 5 Lat E` Mitesh 0.1 [ 10.0 - 15.0 ] cm/sec Lateral E/E` 11.5 [ 1.0 - 2.0 ] ratio Med E` Mitesh 0.1 cm/sec MV E/A 1.2 [ 0.8 - 1.5 ] ratio MVA PHT 3.9 [ 2.0 - 4.0 ] cm2 TR Peak Mitesh 2.7 [ 100.0 - 280.0 ] cm/se c TR Peak PG 29.0 mmHg PV Peak Mitesh 1.3 [ 40.0 - 80.0 ] cm/sec PV Peak PG 7.0 mmHg RVSP 29.0 [ 10.0 - 36.0 ] mmHg RA Pressure 3.0 mmHg Findings: Left Ventricle: Normal left ventricular systolic function. Normal left ventricular cavity size. Normal left ventricular wall thickness. Ejection fraction is visually estimated at 55-60 %. Tissue Doppler/Mitral Doppler indices are consistent with impaired relaxation (Stage I diastolic dysfunction). Right Ventricle: Normal right ventricular size. Normal right ventricular systolic function. Left Atrium: There is mild enlargement of left atrium. Right Atrium: The right atrium is normal in size. Atrial Septum: Normal atrial septum. Ventricular septum: Normal/intact ventricular septum. Mitral Valve: Normal appearance of the mitral valve. Trace mitral regurgitation. Aortic Valve: Normal appearance of the aortic valve. Mild aortic valve regurgitation. Tricuspid Valve: Normal appearance of the tricuspid valve. The estimated Peak RVSP is 32 mmHg. There is trace to mild tricuspid regurgitation. Pulmonic Valve: Normal pulmonic valve appearance. No evidence of pulmonic regurgitation. Pericardium: Normal pericardium with no significant pericardial effusion. Aorta: Normal aortic root. IVC: Normal size and normal respiratory collapse consistent with normal right atrial pressure. Conclusions: Normal left ventricular systolic function. Normal left ventricular cavity size. Normal left ventricular wall thickness. Ejection fraction is visually estimated at 55-60 %. Tissue Doppler/Mitral Doppler indices are consistent with impaired relaxation (Stage I diastolic dysfunction). Mild aortic valve regurgitation. The estimated Peak RVSP is 32 mmHg. Normal size and normal respiratory collapse consistent with normal right atrial pressure. Electronically Signed By: Robe Perez 2018-09-17 16:47:36 PDT
[2018-09-17] MEDS ORDERED: ONDANSETRON 4 MG INJ IV STA (18:24)
[2018-09-17 20:02] VITALS: BP 127/82; PULSE 84; RESP 18
[2018-09-17] MEDS: TAMSULOSIN (SR) 0.4 MG CAP PO SCH (21:04)
[2018-09-17] MEDS ORDERED: METOCLOPRAMIDE 10 MG INJ IV PRN (23:00)
[2018-09-17] MEDS ORDERED: FAMOTIDINE 20 MG INJ IV SCH (23:00)
[2018-09-17] MEDS ORDERED: LIDOCAINE/MYLANTA 40 ML BTL PO ONE (23:00)
[2018-09-17] MEDS: AL HYDROX/MG HYDROX/SIMETH 30 ML CUP PO PRN (23:03)
[2018-09-17] MEDS ORDERED: ONDANSETRON 4 MG INJ IV PRN (23:30)
[2018-09-17 23:59] VITALS: BP 123/82; PULSE 80; RESP 19
[2018-09-18 04:06] VITALS: BP 126/80; PULSE 72; RESP 20
[2018-09-18] MEDS: AL HYDROX/MG HYDROX/SIMETH 30 ML CUP PO PRN ×2 (04:06→17:55)
[2018-09-18] MEDS: PANTOPRAZOLE (EC) 40 MG TAB PO SCH (05:18)
[2018-09-18] MEDS: HEPARIN 5,000 UNIT/1 ML VIAL SC SCH ×3 (05:21→21:49)
[2018-09-18] MEDS: DEXTROSE 5%-0.45% NACL 1,000 ML IV SCH ×2 (05:24→17:29)
[2018-09-18 07:38] VITALS: BP 126/76; PULSE 88; RESP 18
[2018-09-18] MEDS: HYDROmorphONE 0.5 MG/0.5 ML SYG IV PRN ×2 (08:04→13:37)
[2018-09-18] MEDS: POLYETHYLENE GLYCOL 17 GM PACKET PO SCH (09:00)
[2018-09-18] MEDS: DOCUSATE SODIUM 100 MG CAP PO SCH ×2 (09:00→21:00)
[2018-09-18 11:45] VITALS: BP 123/70; PULSE 82; RESP 16
--- NOTE | 2018-09-18 12:45 | PN ---
Date/Time of Note Date/Time of Note DATE: 09/18/18 TIME: 12:40 Assessment/Plan VTE Prophylaxis Risk score (from Nsg)>0 risk: 3 SCD applied (from Nsg): No SCD contraindicated: other Pharmacological prophylaxis: heparin Lines/Catheters IV Catheter Type (from Nrsg): Peripheral IV Urinary Cath still in place: Yes Reason Cath still needed: urinary retention Assessment/Plan Hospital Course S: Per nursing staff, evaluated by hospice team earlier today, still waiting for final decision on this. No apparent acute events overnight otherwise. O: VS- see below PE: General: Fatigued appearing man lying in bed, in mild distress HEENT: Atraumatic, normocephalic. The pupils are equal, round and reactive. Extraocular motor are intact, mucous membranes dry Neck: Supple with full range of motion. No rigidity or meningismus Chest: Nontender Lungs: Clear to auscultation bilaterally no crackles rales or wheezing Heart: Normal S1-S2, Regular rhythm and rate. No murmur, S3, or S4 Abdomen: Soft , mild subcutaneous edema of the abdomen, nondistended , bowel sounds are present. Mild guarding of the lower abdomen. Extremities: Bilateral 2+ pitting edema of the lower extremities, scrotal edema Assessment/Plan: 67 yo man with prostate cancer with bony mets no longer on chemotherapy presents with acute ileus and syncope. #Ileus-improving, since yesterday now having bowel movements- CT abdomen no obstruction. - Also with anorexia, continue boost to diet. - Miralax, biscodyl as needed. # syncope- Likely orthostatic due to volume loss from vomiting and poor PO intake. -Monitor for now # prostate cancer with metastasis- Patient does have previous MRI studies that show metastatic disease to the bone- His oncologist at the [facility]- He is no longer on chemotherapy or any sort of treatment for his cancer- He was told that unfortunately there are not further treatments that would be beneficial to him-again he is open to hospice and evaluation was performed earlier today. With his ECOG 4 functional status and metastatic cancer I predict a <6 month prognosis for him. -Monitor, also consulted palliative care team Dr. Bowens # bilateral lower extremity edema- Secondary to underlying tumor burden from cancer. -Monitor, order for PT if not already done # cancer related pain: -Again, continue [place] and Dilaudid for breakthrough pain, consult pain management # Microcytic anemia: Likely related to underlying cancer. -Monitor, consider iron supplementation # DVT GI prophylaxis: Lovenox, no GI prophylaxis indicated CODE STATUS: DNR/DNI per discussion on admission and as stated above, awaiting final decision on hospice eval which was performed earlier today. Result Diagram: 09/16/1871709/16/18717 Exam/Review of Systems Exam Vitals Vital Signs Date Temp Pulse Resp B/P (MAP) Pulse Ox O2 O2 Flow FiO2 Time Delivery Rate 09/18/18 98.2 88 18 126/76 98 Room Air 07:38 (93) Intake and Output 09/17/18 09/17/18 09/18/18 1515:00 23:00 07:00 IntakeIntake Total 1230 ml 460 ml 240 ml OutputOutput Total 100 ml 1200 ml 1000 ml BalanceBalance 1130 ml -740 ml -760 ml Medications Medication Current Medications Tamsulosin HCl (Flomax) 0.4 mg HS PO Last administered on 09/17/18at 21:04; Admin Dose 0.4 MG; Start 09/15/18 at 21:00 Dextrose/Sodium Chloride 1,000 ml @ 100 mls/hr Q10H IV Last administered on 09/18/18at 05:24; Admin Dose 100 MLS/HR; Start 09/15/18 at 19:20 IV Flush (NS 3 ml) 3 ml PER PROTOCOL IV ; Start 09/15/18 at 19:30 Acetaminophen (Tylenol Tab) 650 mg Q6H PRN PO .PAIN 1-3 OR TEMP; Start 09/15/18 at 19:30 Acetaminophen/ Hydrocodone Bitart ([place] (5/325)) 1 tab Q6H PRN PO .PAIN 4-6; Start 09/15/18 at 19:30 Acetaminophen/ Hydrocodone Bitart ([place] (5/325)) 2 tab Q6H PRN PO .PAIN 7-10 Last administered on 09/15/18at 21:25; Admin Dose 2 TAB; Start 09/15/18 at 19:30 Docusate Sodium (Colace) 100 mg Q12H PRN PO .CONSTIPATION Last administered on 09/16/18at 00:55; Admin Dose 100 MG; Start 09/15/18 at 19:30 Magnesium Hydroxide (Milk Of Mag) 30 ml DAILY PRN PO .CONSTIPATION; Start 09/15/18 at 19:30 Pantoprazole (Protonix Tab) 40 mg DAILY@06 PO Last administered on 09/18/18at 05:18; Admin Dose 40 MG; Start 09/16/18 at 06:00 Heparin Sodium (Porcine) (Heparin (5000 Units/1ml)) 5,000 unit Q8 SC Last administered on 09/18/18 05:21; Admin Dose 5,000 UNIT; Start 09/15/18 at 22:00 Docusate Sodium (Colace) 100 mg BID PO Last administered on 09/17/18at 21:04; Admin Dose 100 MG; Start 09/16/18 at 09:00 Polyethylene Glycol (Miralax) 17 gm DAILY PO Last administered on 09/17/18at 13:50; Admin Dose 17 GM; Start 09/16/18 at 09:00 Bisacodyl (Dulcolax Supp) 10 mg DAILY PRN [place] CONSTIPATION; Start 09/16/18 at 11:30 Ondansetron HCl (Zofran Inj) 4 mg Q4H PRN IV NAUSEA/VOMITING; Start 09/17/18 at 23:30 Al Hydrox/Mg Hydrox/Simethicone (Mag-Al Plus) 30 ml Q4H PRN PO GASTROINTESTINAL UPSET Last administered on 09/18/18at 04:06; Admin Dose 30 ML; Start 09/17/18 at 23:00 Metoclopramide HCl (Reglan) 10 mg Q6H PRN IV NAUSEA; Start 09/17/18 at 23:00 Hydromorphone HCl (Dilaudid) 1 mg Q4H PRN IV SEVERE PAIN LEVEL 7-10 Last administered on 09/18/18at 08:04; Admin Dose 1 MG; Start 09/18/18 at 07:49 CITLALY CALERO Sep 18, 2018 12:45
[2018-09-18 15:02] VITALS: BP 122/79; PULSE 74; RESP 18
[2018-09-18] MEDS: SOD FERRIC GLUC COMPLX 125 MG in SOD CHLORIDE 0.9% 100 ML IVPB SCH (15:17)
[2018-09-18 19:51] VITALS: BP 115/71; PULSE 84; RESP 18
[2018-09-18] MEDS: HYDROmorphONE 1 MG/ML SYG IV PRN (21:19)
[2018-09-18] MEDS: TAMSULOSIN (SR) 0.4 MG CAP PO SCH (21:19)
[2018-09-18] MEDS: HYDROCODONE/APAP (5/325) TAB PO PRN (23:52)
[2018-09-19] VITALS (7 sets, daily range): BP systolic 104–115; BP diastolic 65–72; PULSE 66–79; RESP 18–20
[2018-09-19] MEDS: PANTOPRAZOLE (EC) 40 MG TAB PO SCH (05:19)
[2018-09-19] MEDS: HEPARIN 5,000 UNIT/1 ML VIAL SC SCH ×3 (05:31→21:59)
[2018-09-19] MEDS: DOCUSATE SODIUM 100 MG CAP PO SCH (08:39)
[2018-09-19] MEDS: POLYETHYLENE GLYCOL 17 GM PACKET PO SCH (08:39)
[2018-09-19] MEDS: HYDROmorphONE 1 MG/ML SYG IV PRN ×3 (10:47→21:25)
--- NOTE | 2018-09-19 11:09 | PN ---
Date/Time of Note Date/Time of Note DATE: 09/19/18 TIME: 11:04 Assessment/Plan VTE Prophylaxis Risk score (from Nsg)>0 risk: 5 SCD applied (from Nsg): No SCD contraindicated: other Pharmacological prophylaxis: heparin Lines/Catheters IV Catheter Type (from Nrsg): Peripheral IV Urinary Cath still in place: Yes Reason Cath still needed: urinary retention Assessment/Plan Hospital Course S: Per nursing staff, evaluated by hospice team earlier today, still waiting for final decision on this. No apparent acute events overnight otherwise. O: VS- see below PE: General: Fatigued appearing man lying in bed, in mild distress HEENT: Atraumatic, normocephalic. The pupils are equal, round and reactive. Extraocular motor are intact, mucous membranes dry Neck: Supple with full range of motion. No rigidity or meningismus Chest: Nontender Lungs: Clear to auscultation bilaterally no crackles rales or wheezing Heart: Normal S1-S2, Regular rhythm and rate. No murmur, S3, or S4 Abdomen: Soft , mild subcutaneous edema of the abdomen, nondistended , bowel sounds are present. Mild guarding of the lower abdomen. Extremities: Bilateral 2+ pitting edema of the lower extremities, scrotal edema Assessment/Plan: 67 yo man with prostate cancer with bony mets no longer on chemotherapy presents with acute ileus and syncope. #Ileus-improving, since yesterday now having bowel movements- CT abdomen no obstruction. - Also with anorexia, continue boost to diet. - Miralax, biscodyl as needed. # syncope- Likely orthostatic due to volume loss from vomiting and poor PO intake. -Monitor for now # prostate cancer with metastasis- Patient does have previous MRI studies that show metastatic disease to the bone- His oncologist at the [facility]- He is no longer on chemotherapy or any sort of treatment for his cancer- He was told that unfortunately there are not further treatments that would be beneficial to him-again he is open to hospice and evaluation was performed earlier today. With his ECOG 4 functional status and metastatic cancer I predict a <6 month prognosis for him. -Monitor, apparently patient has tentatively been accepted to [facility] hospice, waiting for SNF placement for this # bilateral lower extremity edema- Secondary to underlying tumor burden from cancer. -Monitor, order for PT if not already done # cancer related pain: -Again, continue [place] and Dilaudid for breakthrough pain, consult pain management # Microcytic anemia: Likely related to underlying cancer. -Monitor, consider iron supplementation # DVT GI prophylaxis: Lovenox, no GI prophylaxis indicated CODE STATUS: DNR/DNI per discussion on admission and as stated above, now SNF hospice placement. Result Diagram: 09/16/1871709/16/18717 Exam/Review of Systems Exam Vitals Vital Signs Date Temp Pulse Resp B/P (MAP) Pulse Ox O2 O2 Flow FiO2 Time Delivery Rate 09/19/18 97.8 72 20 108/67 95 Room Air 07:22 (81) Intake and Output 09/18/18 09/18/18 09/19/18 1414:59 22:59 06:59 IntakeIntake Total 630 ml 320 ml OutputOutput Total 700 ml 1200 ml 1550 ml BalanceBalance -70 ml -880 ml -1550 ml Medications Medication Current Medications Tamsulosin HCl (Flomax) 0.4 mg HS PO Last administered on 09/18/18at 21:19; Admin Dose 0.4 MG; Start 09/15/18 at 21:00 IV Flush (NS 3 ml) 3 ml PER PROTOCOL IV ; Start 09/15/18 at 19:30 Acetaminophen (Tylenol Tab) 650 mg Q6H PRN PO .PAIN 1-3 OR TEMP; Start 09/15/18 at 19:30 Acetaminophen/ Hydrocodone Bitart ([place] (5/325)) 1 tab Q6H PRN PO .PAIN 4-6; Start 09/15/18 at 19:30 Acetaminophen/ Hydrocodone Bitart ([place] (5/325)) 2 tab Q6H PRN PO .PAIN 7-10 Last administered on 09/18/18at 23:52; Admin Dose 2 TAB; Start 09/15/18 at 19:30 Docusate Sodium (Colace) 100 mg Q12H PRN PO .CONSTIPATION Last administered on 09/16/18at 00:55; Admin Dose 100 MG; Start 09/15/18 at 19:30 Magnesium Hydroxide (Milk Of Mag) 30 ml DAILY PRN PO .CONSTIPATION; Start 09/15/18 at 19:30 Pantoprazole (Protonix Tab) 40 mg DAILY@06 PO Last administered on 09/19/18at 05:19; Admin Dose 40 MG; Start 09/16/18 at 06:00 Heparin Sodium (Porcine) (Heparin (5000 Units/1ml)) 5,000 unit Q8 SC Last administered on 09/19/18 05:31; Admin Dose 5,000 UNIT; Start 09/15/18 at 22:00 Docusate Sodium (Colace) 100 mg BID PO Last administered on 09/17/18at 21:04; Admin Dose 100 MG; Start 09/16/18 at 09:00 Polyethylene Glycol (Miralax) 17 gm DAILY PO Last administered on 09/17/18at 13:50; Admin Dose 17 GM; Start 09/16/18 at 09:00 Bisacodyl (Dulcolax Supp) 10 mg DAILY PRN [place] CONSTIPATION; Start 09/16/18 at 11:30 Ondansetron HCl (Zofran Inj) 4 mg Q4H PRN IV NAUSEA/VOMITING; Start 09/17/18 at 23:30 Al Hydrox/Mg Hydrox/Simethicone (Mag-Al Plus) 30 ml Q4H PRN PO GASTROINTESTINAL UPSET Last administered on 09/18/18at 17:55; Admin Dose 30 ML; Start 09/17/18 at 23:00 Metoclopramide HCl (Reglan) 10 mg Q6H PRN IV NAUSEA Last administered on 09/18/18 17:22; Admin Dose 10 MG; Start 09/17/18 at 23:00 Ferric Sodium Gluconate Complex 125 mg/Sodium Chloride 100 ml @ 100 mls/hr DAILY@1300 IVPB Last administered on 09/18/18at 15:17; Admin Dose 100 MLS/HR; Start 09/18/18 at 14:30; Stop 09/20/18 at 13:59 Hydromorphone HCl (Dilaudid) 1 mg Q4H PRN IV SEVERE PAIN LEVEL 7-10 Last administered on 09/19/18at 10:47; Admin Dose 1 MG; Start 09/18/18 at 18:00 CITLALY CALERO Sep 19, 2018 11:09
[2018-09-19] MEDS ORDERED: POLYETHYLENE GLYCOL 17 GM PACKET PO PRN (11:30)
[2018-09-19] MEDS: HYDROCODONE/APAP (5/325) TAB PO PRN (14:14)
[2018-09-19] MEDS: SOD FERRIC GLUC COMPLX 125 MG in SOD CHLORIDE 0.9% 100 ML IVPB SCH (14:14)
[2018-09-19] MEDS: TAMSULOSIN (SR) 0.4 MG CAP PO SCH (21:24)
[2018-09-20 01:39] VITALS: BP 127/73; PULSE 72; RESP 19
[2018-09-20] MEDS: HYDROmorphONE 1 MG/ML SYG IV PRN ×4 (01:42→16:41)
[2018-09-20] MEDS: PANTOPRAZOLE (EC) 40 MG TAB PO SCH (05:40)
[2018-09-20] MEDS: HEPARIN 5,000 UNIT/1 ML VIAL SC SCH ×2 (05:43→13:47)
[2018-09-20 07:35] VITALS: BP 116/73; PULSE 77; RESP 19
--- NOTE | 2018-09-20 12:41 | PDOCDIS ---
Discharge Instructions CONDITION [id number] Patient Condition: [id number] Serious CITLALY CALERO Sep 20, 2018 12:41
--- NOTE | 2018-09-20 12:45 | DS ---
Date/Time of Note Date/Time of Note DATE: 09/20/18 TIME: 12:42 Discharge Summary Admission/Discharge Info Admit Date/Time Sep 16, 2018 at 09:14 Discharge Date/Time #Ileus-improving # syncope- Likely orthostatic due to volume loss from vomiting and poor PO intake. # prostate cancer with metastasis- Patient does have previous MRI studies that show metastatic disease to the bone- His oncologist at the [facility]- He is no longer on chemotherapy or any sort of treatment for his cancer- He was told that unfortunately there are not further treatments that would be beneficial to him-again now accepted under [facility] hospice care # bilateral lower extremity edema- Secondary to underlying tumor burden from cancer. # cancer related pain # Microcytic anemia: Likely related to underlying cancer. Patient Condition: Stable Hx of Present Illness 67-year-old male with a history of metastatic prostate carcinoma who presented to the emergency department complaining of 1 week of increasing weakness and dizziness. Patient reports that he is no longer on chemotherapy as he has been told by his oncologist at all of you that there are not any more treatments they would be beneficial for him unfortunately. He states that he has been unable to keep any fluids down, he is able to keep some liquids down. He reports that he has not had a bowel movement in the last few days as well. He does report increased swelling in his bilateral lower extremities. He feels weak and tired. He currently lives with his mother. He has having difficulty ambulating as well. He states that when he was in the emergency department he did fall there. Pelvic x-ray that was performed in emergency department did not show any signs of acute fracture. He also reports that his left leg has been weak was told by his oncologist that this likely secondary to his metastatic disease. Hospital Course Patient was admitted and showed signs of ileus. His imaging study was performed CT of the abdomen that did not show any obstruction. Patient was treated conservatively for this. Afterwards he was eventually able to have bowel movement and tolerate diet. However he continued to have pain from his stage IV prostate cancer with metastatic disease of the bone. He was given IV iron supplementation for low serum iron levels. Because the patient's advanced cancer disease, hospice company evaluated the patient and they have now arrange for home hospice care and patient will be going there later today under their care and current condition. Home Meds Active Scripts Hydrocodone/Acetaminophen ([place] 10-325 Tablet) 1 Each Tablet, 1 TAB PO Q6H PRN for PAIN, #16 TAB Prov:ALYSA VILLASEÑOR DO 07/22/18 Reported Medications Tamsulosin Hcl* (Tamsulosin Hcl*) 0.4 Mg Cap.er.24h, 0.4 MG PO HS, CAP 05/28/18 Discontinued Scripts Metronidazole* (Flagyl*) 500 Mg Tablet, 500 MG PO TID for 5 Days, TAB Prov:ALYSA VILLASEÑOR DO 07/22/18 Ciprofloxacin Hcl* (Ciprofloxacin Hcl*) 500 Mg Tablet, 500 MG PO BID for 5 Days, TAB Prov:ALYSA VILLASEÑOR DO 07/22/18 Diphenoxylate HCl/Atropine (Lomotil 2.5-0.025 mg Tablet) 1 Each Tablet, 1 TAB PO QID PRN for DIARRHEA, #10 TAB Prov:ALYSA VILLASEÑOR DO 07/22/18 Primary Care Provider [facility] Time spent on discharge: > 30 minutes CITLALY CALERO Sep 20, 2018 12:45
[2018-09-20] MEDS: HYDROCODONE/APAP (5/325) TAB PO PRN (13:35)
[2018-09-20] MEDS: AL HYDROX/MG HYDROX/SIMETH 30 ML CUP PO PRN (13:41)
[2018-09-20] MEDS: SOD FERRIC GLUC COMPLX 125 MG in SOD CHLORIDE 0.9% 100 ML IVPB SCH (13:43)
[2018-09-20 14:50] VITALS: BP 107/69; PULSE 83; RESP 19
== END 2018-09-20 19:00 | disposition hospice, home (50) | DRG 389 ==
LOC: E/R 16:20 → TEL 19:43 → OBSVTOIN 09-16 09:14 → 2NE 09-19 22:35
PROVIDERS: ADMIT Internal Medicine; ATTEND Hospitalist
DX: K56.7 Ileus, unspecified (principal); C79.51 Secondary malignant neoplasm of bone; C61 Malignant neoplasm of prostate; D50.9 Iron deficiency anemia, unspecified; G89.3 Neoplasm related pain (acute) (chronic); D63.0 Anemia in neoplastic disease; I95.1 Orthostatic hypotension; R63.0 Anorexia; Z68.26 Body mass index [BMI] 26.0-26.9, adult
CPT/HCPCS: 71045; 72170; 74177; 76705; 80053; 81001; 82728; 83540; 83690; 83735; 83880; 84484; 85025; 86850; 86900; 86901; 93005; 93306; 93880; 97110; 97116; 97162; 97167; 97530; G0378; J1170; J1644; J1940; J2405; J2765; J2916; J3480; J7042; J7120; Q9967